=== PATIENT | female | born 1970 | race Caucasian/White ===

== ENCOUNTER 2019-02-05 06:17 | Day surgery (SDC) | payer OTHER ==
[2019-02-05] MEDS ORDERED: Ringers Lactate 1,000 ML IV ONE (06:53)
[2019-02-05] MEDS ORDERED: NA CHLORIDE 0.9% 1,000 ML ONE (07:06)
[2019-02-05] MEDS ORDERED: LIDOCAINE 1% W/EPI 1:100,000 MDV 20 ML VIAL ONE (07:06)
[2019-02-05] MEDS ORDERED: LIDOCAINE 2% MPF 5 ML VIAL ONE (07:12)
[2019-02-05] MEDS ORDERED: MIDAZOLAM HCL 2 MG/2 ML INJ ONE (07:12)
[2019-02-05] MEDS ORDERED: ONDANSETRON 4 MG/2 ML VIAL ONE (07:12)
[2019-02-05] MEDS ORDERED: FENTANYL CITR 100 MCG/2 ML ONE (07:12)
[2019-02-05] MEDS ORDERED: PROPOFOL 200 MG/20 ML VIAL IV ONE (07:12)
[2019-02-05] MEDS ORDERED: EPHEDRINE SULF 50 MG/ML VIAL ONE (08:01)
[2019-02-05] MEDS ORDERED: KETOROLAC 30 MG/ML INJ ONE (08:08)
[2019-02-05] MEDS: MORPHINE 4 MG/ML SYR ONE ×2 (08:32→08:39)
--- NOTE | 2019-02-05 19:11 | OP ---
Date of Procedure: 02/05/2019 Surgeon: Marie Lazo MD Preoperative Diagnoses: Heavy menstrual periods, leiomyomata, possible endometrial polyp or myoma. Postoperative Diagnoses: Abnormal uterine bleeding with fibroids and endometrial polyp. Procedures Performed: 1.Diagnostic hysteroscopy. 2.Operative hysteroscopy with Symphion for polypectomy. 3.Dilation and curettage. Anesthesia: General with LMA. Specimens: Endometrial curettings and polyp. Complications: No complications. Drains: None. Patient's Condition: Stable. Indications For Procedure: Patient is a 48-year-old lady with heavy menstrual bleeding, prolonged pe riods. Transvaginally, her ultrasound was performed. She was found to have fibroids and uterus enla rged at 10.8 cm. The largest fibroid 8.8 cm in the posterior wall, deviated to the left. The endome trial thickness was 3.3 cm with a heterogeneous mass inside the endometrial cavity, so it is either a myoma or a polyp. She was counseled on the possibilities, need for cavity visualization and removal to rule out an atypia or malignancy. After she was consented, she was brought to the hospital. She was taken back to the OR after re-consenting. In the preop area, her mother had the biggest concern as the use of propofol which we reassured that would be done appropriately by the anesthesiologist a nd this is needed in order for us to perform the procedure. The patient consented for this then all the questions were answered. She was taken back to the OR. Description Of Procedure: After placing the patient in supine fashion on the operating table, genera l anesthesia was given. Patient did very well with her propofol. Then, the patient was placed in a dorsal lithotomy position. After pelvic exam was performed, uterus was found to be enlarged about 12 week size with that myoma. Then prep x3 with Betadine was done. The cervix exposed with a speculum . Anterior lip grasped with 2 Allis clamps. Diagnostic SlimLine hysteroscope was introduced into th e uterine cavity through the cervical canal. Endometrial polyp was seen arising from the posterior w all. Endometrial lining appeared to be slightly thickened but mostly unremarkable. Both tubal ostia were well visualized. Then, the diagnostic scope was removed. The operative Symphion scope was the n taken, primed, then the operating element was introduced through this and the mean arterial pressur e was 74 and the set pressure was at 70. Then, we went ahead and performed the hysteroscopy. Once t he polyp was identified, adequate cavity distention was obtained. The polypectomy was performed with the help of the resection device. Then endometrial curettings were also obtained with the same ugo ce. Thorough irrigation was performed. There was good hemostasis. The scope was removed. The samp les were sent for permanent pathology. All instruments were removed. Instrument, needle, and sponge counts were done and were correct at the end of the case. The patient tolerated the procedure well. She will follow up with me in 1 week. We will review the pathology. Then, we will proceed with fu rther surgical planning. Patient also had complaints of a vaginal bulge, but there was no significan t prolapse noted on the pelvic exam. Possibility of hysterectomy versus alternative of just an ablat ion will be reviewed. RASHAD Voice ID: [id number] Report ID: [id number]
== END 2019-02-05 09:34 | disposition home or self-care (01) ==
LOC: OR 06:17
PROVIDERS: ATTEND Obstetrics & Gynecology
PROC: 0UDB7ZX Extraction of Endometrium, Via Natural or Artificial Opening, Diagnostic (ICD-10-PCS; 2019-02-05)
PROC: 0UJD8ZZ Inspection of Uterus and Cervix, Via Natural or Artificial Opening Endoscopic (ICD-10-PCS; 2019-02-05)
PROC: 0UB97ZX Excision of Uterus, Via Natural or Artificial Opening, Diagnostic (ICD-10-PCS; principal; 2019-02-05 07:30)
DX: N92.1 Excessive and frequent menstruation with irregular cycle (principal); D25.9 Leiomyoma of uterus, unspecified; N84.0 Polyp of corpus uteri; E03.9 Hypothyroidism, unspecified; F17.210 Nicotine dependence, cigarettes, uncomplicated; Z88.0 Allergy status to penicillin; Z88.6 Allergy status to analgesic agent; Z80.3 Family history of malignant neoplasm of breast; Z83.3 Family history of diabetes mellitus; Z82.49 Family history of ischemic heart disease and other diseases of the circulatory system
CPT/HCPCS: 81025; 88305; 58558; J2704; J2250; J3010; J7030; J2405

== ENCOUNTER 2019-05-29 06:41 | Day surgery (SDC) | payer OTHER ==
[2019-05-26 14:00] LABS: Absolute Lymphocytes (CBC) 2.1 K/uL (0.7-4.9); Basophils % 0.4 % (0-1.3); Hematocrit 35.9 % (36.0-45.0); Lymphocytes % 25.5 % (15.3-44.8); RBC Red Blood Cell Count 4.12 M/uL (3.86-4.86)
[2019-05-26 14:06] LABS: Urine Appearance CLOUDY; Urine Bilirubin NEGATIVE (NEG); Urine Blood 3+ (NEG); Urine Color YELLOW; Urine Glucose NEGATIVE (NEG); Urine Protein 1+ (NEG); Urine Specific Gravity 1.015 (1.005-1.030); Urine Urobilinogen 0.2 mg/dL (0.2-1.0)
[2019-05-26 14:08] LABS: Urine Microscopic Reflex ORDER UMIC
[2019-05-26 14:17] LABS: Urine Bacteria <20 /HPF (<20); Urine Culture Reflex Order NOT NEEDED; Urine Mucus 1+ /HPF (NONE SEEN); Urine RBC >50 /HPF (NONE SEEN)
--- OUTSIDE RECORDS SUMMARY | 2019-05-29 06:44 | XMS REPORT ---
:1970 Author Organization [employer] Care Team Providers Name Role Phone Cervantes, Na Provider Role Unavailable Allergies, Adverse Reactions, Alerts Substance Reaction Event Type penicillin rash Drug Allergy Problems Problem Type Condition Code Onset Dates Condition Status Problem Postmenopausal Z78.0 Active Problem Cigarette nicotine dependence F17.210 Active without complication Problem Lumbar degenerative disc disease M51.36 Active Problem Seasonal allergies J30.2 Active Assessment Cigarette nicotine dependence F17.210 Active without complication Problem Mixed hyperlipidemia E78.2 Active Assessment Encounter for tobacco use cessation Z71.6 Active counseling Problem Tension-type headache, not G44.209 Active intractable, unspecified chronicity pattern Problem Dermatitis of external ear L30.9 Active Problem Encounter for tobacco use cessation Z71.6 Active counseling Problem Primary insomnia F51.01 Active Problem Ear pain, right H92.01 Active Assessment Primary insomnia F51.01 Active Assessment Postmenopausal Z78.0 Active Assessment Uterine leiomyoma, unspecified D25.9 Active location Assessment Seasonal allergies J30.2 Active Assessment Tension-type headache, not G44.209 Active intractable, unspecified chronicity pattern Assessment Acquired hypothyroidism E03.9 Active Assessment Mixed hyperlipidemia E78.2 Active Assessment Lumbar degenerative disc disease M51.36 Active Problem Acquired hypothyroidism E03.9 Active Medications Medication Code Code Instructions Start End Status Dosage System Date Date Diclofenac ND 80156974204 50 MG Orally May 15May Active 1 tablet with Sodium Twice a day 2018 01, food or milk prn pain 2018 Azithromycin ND 67999271375 250 MG Orally November 13, Active 2 tablets on Once a day 2019 the first day, then 1 tablet daily for 4 days Mirtazapine ND 22131283103 15 MG Orally Active 1 tablet at Once a day bedtime Triamcinolone ND 58221370743 0.1 % Active 1 application Acetonide Externally to affected Twice a day area Levothyroxine ND 26808721342 50 MCG Orally Active 1 tablet on Sodium Once a day an empty [place] the [place] [address]-04 50 MCG Active TAKE 1 TABLET Sodium BY MOUTH ONCE DAILY IN THE MORNING ON AN EMPTY STOMACH Levothroid [facility] 72038921282 50 MCG Orally Active 1 tablet on Once a day an empty stomach in the morning Duloxetine HCl [facility] [address]-48 30 MG Active TAKE 1 CAPSULE BY MOUTH ONCE DAILY FOR 30 DAYS Gabapentin [facility] 68125027170 800 MG Orally Active 2 tablets twice a day Results No Known Results Summary Purpose eClinicalWorks Submission
--- OUTSIDE RECORDS SUMMARY | 2019-05-29 06:44 | XMS REPORT ---
:1970 Author Organization [employer] Care Team Providers Name Role Phone Cervantes, Na Provider Role Unavailable Allergies, Adverse Reactions, Alerts Substance Reaction Event Type penicillin rash Drug Allergy Problems Problem Type Condition Code Onset Dates Condition Status Problem Acquired hypothyroidism E03.9 Active Problem Lumbar degenerative disc disease M51.36 Active Problem Postmenopausal Z78.0 Active Problem Mixed hyperlipidemia E78.2 Active Assessment Cigarette nicotine dependence F17.210 Active without complication Problem Primary insomnia F51.01 Active Assessment Encounter for tobacco use cessation Z71.6 Active counseling Problem Seasonal allergies J30.2 Active Problem Encounter for tobacco use cessation Z71.6 Active counseling Problem Cigarette nicotine dependence F17.210 Active without complication Problem Ear pain, right H92.01 Active Problem Dermatitis of external ear L30.9 Active Assessment Seasonal allergies J30.2 Active Assessment Primary insomnia F51.01 Active Assessment Dermatitis of external ear L30.9 Active Assessment Uterine leiomyoma, unspecified D25.9 Active location Assessment Mixed hyperlipidemia E78.2 Active Assessment Lumbar degenerative disc disease M51.36 Active Assessment Skin lesion of back L98.9 Active Assessment Acquired hypothyroidism E03.9 Active Assessment Postmenopausal Z78.0 Active Medications Medication Code Code Instructions Start End Status Dosage System Date Date Loratadine [facility] 13922914883 10 MG Orally Feb 12Apr Active 1 tablet Once a day 2018 Triamcinolone [facility] 44420680054 0.1 % Active 1 application Acetonide Externally to affected Twice a day area Mirtazapine ND 27345847658 15 MG Orally Feb 12, Active 1 tablet at Once a day 2019 bedtime Levothyroxine [facility] [address]-91 50 MCG Active TAKE 1 TABLET Sodium BY MOUTH ONCE DAILY IN THE MORNING ON AN EMPTY STOMACH Gabapentin ND 12742996567 600 MG Orally Active 2 capsule twice a day Levothroid ND 78462587662 50 MCG Orally Active 1 tablet on Once a day an empty stomach in the morning Duloxetine HCl ND 40719517516 30 MG Orally Inactive 1 capsule Once a day Duloxetine HCl [facility] [address]-94 30 MG Active TAKE 1 CAPSULE BY MOUTH ONCE DAILY FOR 30 DAYS Levothyroxine [facility] 39788940819 50 MCG Orally Active 1 tablet on Sodium Once a day an empty stomach in the morning Azithromycin [facility] 20547493777 250 MG Orally November 13, Active 2 tablets on Once a day 2018 the first day, then 1 tablet daily for 4 days Results No Known Results Summary Purpose eClinicalWorks Submission
[2019-05-29] MEDS ORDERED: SCOPOLAMINE HYDROBROMIDE PATCH TD ONE (06:57)
[2019-05-29] MEDS ORDERED: Ringers Lactate 1,000 ML IV ONE ×2 (06:57→10:01)
[2019-05-29] MEDS ORDERED: dexAMETHasone 10 MG/ML VIAL ONE (07:08)
[2019-05-29] MEDS ORDERED: ROCURONIUM 50 MG/5 ML VIAL IV ONE (07:08)
[2019-05-29] MEDS ORDERED: PROPOFOL 200 MG/20 ML VIAL IV ONE (07:08)
[2019-05-29] MEDS ORDERED: GLYCOPYRROLATE 0.2 MG/ML SYR ONE ×2 (07:08→08:39)
[2019-05-29] MEDS ORDERED: LIDOCAINE 2% MPF 5 ML VIAL ONE (07:08)
[2019-05-29] MEDS ORDERED: ONDANSETRON 4 MG/2 ML VIAL ONE (07:09)
[2019-05-29] MEDS ORDERED: FENTANYL CITR 250 MCG/5 ML ONE ×2 (07:09→08:53)
[2019-05-29] MEDS ORDERED: MIDAZOLAM HCL 2 MG/2 ML INJ ONE (07:09)
[2019-05-29] MEDS: CEFAZOLIN/SWI 2gm 2 GM/20 ML SYR ONE ×2 (07:54→08:00)
[2019-05-29] MEDS: BUPIVACAINE 0.25% PF 30 ML VIAL ONE ×2 (08:16→08:18)
[2019-05-29] MEDS: Ringers Lactate 1,000 ML IV ONE ×2 (09:04→09:15)
[2019-05-29] MEDS: HYDROMORPHONE HCL 1 MG/ML INJ ONE ×4 (12:03→12:38)
[2019-05-29 12:34] VITALS: O2SAT 98
[2019-05-29] MEDS: MIDAZOLAM HCL 2 MG/2 ML INJ ONE ×2 (12:40→13:30)
[2019-05-29 12:59] VITALS: BP 122/75; TEMP 98.7
--- NOTE | 2019-05-30 00:25 | OP ---
Date of Procedure: 05/29/2019 Surgeon: Marie Lazo MD Preoperative Diagnoses: Menorrhagia, pelvic pain, fibroids, remote history of cervical dysplasia for which she had LEEP in 1999. The patient also complained of frequent urination. Postoperative Diagnoses: Menorrhagia, pelvic pain, fibroids, remote history of cervical dysplasia for which she had LEEP in 1999. The patient also complained of frequent urination, and endometriosis. Procedures Performed: 1. Total laparoscopic hysterectomy, bilateral salpingectomy, vaginal morcellation for retrieval of the specimen. 2. Lysis of adhesions from the omentum to the right adnexa and then sigmoid colon to the left tube, left lateral wall at the level of the pelvic brim and proximal lateral wall. 3. Endometriosis removal from pelvic peritoneum. Anesthesia: General endotracheal. Specimens: Uterus, bilateral tubes, and morcellated uterus. Endometriosis present along with the serosal specimen of the uterus at the level of both uterosacral ligaments. Complications: Left ureteric injury. Drains: Winters catheter. Condition: Stable. The patient was recovered from anesthesia, recovered in the PACU, and transferred to [facility] for repair of her ureteric injury. Brief History And Physical: She is a 48-year-old presenting with pelvic pain and bleeding about 12 days and has been feeling pelvic pressure, felt like her uterus was falling out, urinary symptoms as well. Initial visit 6months ago. She had history of overactive bladder and medical treatment for this and this has failed. She had an ultrasound, which showed fibroids, the largest of which was 8 cm. On examination, this was mostly on the left side. She has history of tubal ligation after 2 vaginal deliveries and then the LEEP procedure in 1999 , for severe cervical dysplasia. She had endometrial cavity evaluation and sampling. There was a polyp that was benign and it was removed. Endometrium without atypia or malignancy, secretory endometrium was seen. Hemoglobin level 12 g. Discussed all the options of treatment including DMPA, myomectomy, ablation to be done versus total laparoscopic hysterectomy, bilateral salpingectomy were all reviewed with the patient. As pain was also a leading complaint along with at least 1yr h/o recurrent and frequent bleeding, possible surgical treatment. After the benefits and risks of the procedure including bleeding, infection, injury to the bowel, bladder, and ureters were reviewed she was consented. We consented her for transfusion as well, although the risk is very rare. Risk of leiomyosarcoma was rare and this was reviewed with the patient. A mini lap possibly would be performed if her specimen could not be removed vaginally. Once she was consented for all this, retention of ovaries was discussed with the patient as she is only 48 and her FSH level is still pretty normal. Description Of Procedure: After informed consent was verified, the patient and her mother and sister were addressed in the preop area. All the procedure including the risks and complications of the procedure were all reviewed with the patient and then she was re-consented and taken to the OR. So today, after re-consenting in the preop, she was taken back to the OR placed in the supine fashion on the operating table. General anesthesia was given, she was placed in a dorsal lithotomy position using Socrates stirrups. Arms were tucked by the side. Positioning was checked. SCDs were started. 2 g of Ancef was given. Time-out was done. Pelvic exam revealed the cervix slightly deviated to the right. Uterus appeared to be deviated, the fundus to the right , and a large myoma on the left side. Minimal nodularity palpated in the uterosacral area on both sides. The cul-de-sac was free. After the abdomen was prepped with ChloraPrep and vaginal area with Betadine, draping was done in a sterile fashion. A speculum was placed to expose the cervix. Anterior lip grasped with 2 Allis clamps and a large VCare was introduced into the uterus. Balloon inflated and cup placed and once this was fixed in place after the speculum was removed, then Winters was placed to drain the bladder and attached to a cysto tubing to an LR bag, emptied 300. Then, this area was draped. A 1 cm infraumbilical incision was made with a scalpel. Once the skin incision was made and dissection was done to the level of the fascia, I could see a defect at the level of the umbilicus, which looked like an umbilical hernia. So picked up the edges of the fascia around this umbilical hernia, the ring of the fascial defect was exposed. The preperitoneal fat was removed with the help of a Bovie. Then, the incision was slightly extended in order for me to visualize the edges well and then 0 Vicryl sutures were tagged on both sides. Then, peritoneum was entered bluntly, S retractors placed. Melida introduced. Peritoneal cavity was insufflated. The site of entry was checked with 30- degree lens at 10 mm. Site of entry checked. Upper abdominal surfaces, gallbladder, liver unremarkable. No evidence of any endometriosis or implant. The omentum was unremarkable. The patient was placed in Trendelenburg position. A 5 mm left lower quadrant and right lower quadrant ports were placed after injecting with Marcaine, then suprapubic 10 port placed as well under direct visualization. Then omental adhesions were seen to the left adnexa where the site of the tubal ligation was and this was taken down with the help of the LigaSure with good hemostasis. Then moved on the left side, there was a small ovarian cyst, which appeared to be physiological, no evidence of endometriosis. The tube in the distal part was scarred and was attached to the sigmoid colon. This was taken down sharply with scissors and at the level of the pelvic brim to expose the distal part of the tube as well as insertion of the IP to the ovary. The adhesions were taken down then to visualize the ureter at the level of the pelvic brim. The adhesions were taken down from the colon to the lateral wall. There were endometriotic implants at the area of the left uterosacral insertion, which were more nodular than on the right side, but there were implants on both sides. No other endometriosis was found in the peritoneum of the pelvic cavity. The plan was to remove the endometriosis along with the uterine specimen. The anterior cul-de-sac was free. The left utero-ovarian ligament was taken down, then the mesosalpinx tube were removed, then the peritoneum of the anterior broad ligament was opened up inferior to the round ligament with the help of the LigaSure. Then, once this peritoneal opening was made, then the round ligament was taken down in its entirety and then the lateral wall was opened up. The dissection was performed between the fibroids here that was extending into the lateral wall, the fibroid from all the areolar tissue around dissecting away from the sidewall carefully. Once this was done and the posterior peritoneum was opened up, the posterior broad ligament was taken down to the level of the uterosacral ligament. Here the endometriosis was present and this was dissected by opening a window in the peritoneum itself and going medially to the level of the incision of the uterosacral. However, there was thicker tissue that was attached at the endometriotic implant, which appeared to be infiltrating at the level of the uterine artery. The vein was much more exposed than the artery. So at this point, dissection was carried to the anterior part of the vaginal wall where the bladder flap was raised. Once the peritoneum was incised all the way, the bladder was dissected inferiorly. The periphery of the cup was well visualized and the vesicovaginal space was entered with the help of the monopolar and the anterior midline. Once this was done, the bladder was dissected inferiorly and dissection was performed on the opposite side now taking down the left utero-ovarian ligament, the tube, mesosalpinx, the round ligament. The anterior broad ligament was opened up on the right side and the peritoneum taken down all the way to the level of the bladder flap and the bladder was dissected inferiorly even on the right side, exposing the entire periphery of the cuff and the VCare cup anteriorly. Then posteriorly, once the posterior peritoneum of the broad ligament was taken down to the level of the left uterosacral, here dissection was performed to separate the implants, which were not nodular from the lateral wall. Once this was done, then they were included with the uterine specimen, the vessels were exposed. The vessels were taken down with the help of the bipolar basket tip, then cauterized with the LigaSure and cut. The cardinal ligaments were also taken down and the dissection on the right side was complete. On the left side, dissection was performed to isolate the uterine artery. Once the uterine artery was isolated, medial to the vessels, a window was made so that the vessels could be taken down. Once this was done with the help of the monopolar and LigaSure, the bladder was completely reflected inferiorly to expose the cup. The endometriotic implant that was present at the insertion of the left uterosacral had to be dissected free in order for me to take the uterine vessel, so dissection was performed to separate the uterosacral nodule from the lateral wall. There was a lot of scar tissue here and systematically there was fat as well that was dissected. Once this dissection was complete and the uterine artery was exposed very close to the uterus the vessels were taken down. First with the help of the LigaSure it was cauterized close to the uterus, then 2 clips were placed immediately lateral to the burn and then the vessels were transected. Once the vessels were transected, the inspection was done laterally to visualize the ureter and see its distance, so that further dissection could be performed and at this time I noticed that the ureter on the left side had an injury. The lumen of the ureter was evident and it appeared to be a transection at the time of the dissection of the endometriosis. Once this was recognized, the ureter was followed superiorly to the pelvic brim on the left side and I could see clearly that this was the ureteric injury. At this time, my plan was to complete the hysterectomy while contacting the urologist. Our local urologist did not feel comfortable taking care of this injury, so a call was placed to a trauma urologist at [facility] in [place], Dr. Norris. After talking to Dr. Norris on the phone, as he was out of town, the covering physician Dr. Minor was contacted and advice from him was to finish the procedure and transfer the patient to [facility] for surgery for repair of the ureter. Placing a drain in the pelvic cavity and then placing stay sutures for identification of the proximal and distal ends of the injured ureter was recommended, so with a 5-0 Prolene, I placed 2 sutures, one on the serosa of the proximal and another one on the distal ureter leaving the tails really long for easy identification. This was done after the hysterectomy was completed. The cardinal ligaments were taken down with the help of the LigaSure, then monopolar hook blade was used to perform a circumferential colpotomy. The specimen was detached and pulled out through the vagina. I had to perform going back down vaginally to morcellate the uterus with the help of 10 blade, mass clamps and small Deavers. Once the entire uterus was morcellated enough to be removed, the specimen was retrieved. A vaginal occlusion sponge was placed. Then going back laparoscopically, I changed gloves. The vaginal cuff was closed. There was excellent hemostasis. Closure with 0 PDS both ends and then with simple sutures and then 3 [id number] in the middle approximated the full thickness of the vaginal cuff. Then, the right tube was removed, the distal part. Then, good inspection of the right side showed there was no electrical, mechanical, or thermal injury to the ureter on the right side and the plan was to leave the Winters in place. A TED drain was placed in the pelvic cavity coming out through the suprapubic incision and a nylon stitch was placed to retain this in place. All the ports were removed under direct vision, closed with britany. The fascia was closed with the help of a 0 braided PDS in a [id number] fashion and 4-0 Vicryl interrupted for the skin. Instrument, needle, and sponge counts were correct at the end of the case. EBL was minimal. The patient tolerated the procedure well. Her Winters was left in place and transfer has been arranged to [facility] for the patient to have another surgery. I discussed the findings, the complication, and the plan of care with the mother of the patient and her sister. After she was awake, I discussed this with the patient as well. Contacted Dr. Minor, let him know about all the findings, all the sutures that were placed and her tract has been completed and she has been transferred now. She has a followup with me in 1 week. AVINASH/AMADOR Voice ID: [id number] Report ID: [id number] [place]
== END 2019-05-29 13:40 | disposition short-term general hospital (02) ==
LOC: OR 06:41
PROVIDERS: ATTEND Obstetrics & Gynecology
PROC: 0UT74ZZ Resection of Bilateral Fallopian Tubes, Percutaneous Endoscopic Approach (ICD-10-PCS; 2019-05-29)
PROC: 0DBW4ZZ Excision of Peritoneum, Percutaneous Endoscopic Approach (ICD-10-PCS; 2019-05-29)
PROC: 0UT94ZZ Resection of Uterus, Percutaneous Endoscopic Approach (ICD-10-PCS; principal; 2019-05-29 07:30)
DX: N92.0 Excessive and frequent menstruation with regular cycle (principal); N99.71 Accidental puncture and laceration of a genitourinary system organ or structure during a genitourinary system procedure; Y65.8 Other specified misadventures during surgical and medical care; Y92.234 Operating room of hospital as the place of occurrence of the external cause; D25.2 Subserosal leiomyoma of uterus; N80.0 Endometriosis of uterus; N83.8 Other noninflammatory disorders of ovary, fallopian tube and broad ligament; K66.0 Peritoneal adhesions (postprocedural) (postinfection); N32.81 Overactive bladder; A63.0 Anogenital (venereal) warts; E03.9 Hypothyroidism, unspecified; Z87.410 Personal history of cervical dysplasia; Z88.0 Allergy status to penicillin
CPT/HCPCS: 58573; 58662; 85025; 36415; 86900; 86850; 81025; 86901; 88302; 88307; J2704; J2250 ×2; J3010 ×2; J1100; J1170 ×2; J0690; J7120 ×3; J2405; 81003; 81015

== ENCOUNTER 2019-06-24 17:21 | Emergency (ER) | payer OTHER ==
--- OUTSIDE RECORDS SUMMARY | 2019-06-24 17:24 | XMS REPORT ---
[...] Status Dosage System Date Date Diclofenac ND 70175520571 50 MG Orally May 15May Active 1 tablet with Sodium Twice a day 2018 01, food or milk prn pain 2018 Azithromycin ND 12427386225 250 MG Orally November 13, Active 2 tablets on Once a day 2019 the first day, then 1 tablet daily for 4 days Mirtazapine ND 07603517211 15 MG Orally Active 1 tablet at Once a day bedtime Triamcinolone ND 96115276327 0.1 % Active 1 application Acetonide Externally to affected Twice a day area Levothyroxine ND 38875929807 50 MCG Orally Active 1 tablet on Sodium Once a day an empty [place] the [place] [address]-36 50 MCG Active TAKE 1 TABLET Sodium BY MOUTH ONCE DAILY IN THE MORNING ON AN EMPTY STOMACH Levothroid [facility] 82352087067 50 MCG Orally Active 1 tablet on Once a day an empty stomach in the morning Duloxetine HCl [facility] [address]-92 30 MG Active TAKE 1 CAPSULE BY MOUTH ONCE DAILY FOR 30 DAYS Gabapentin [facility] 37820465442 800 MG Orally Active 2 tablets twice a day Results No Known Results Summary Purpose eClinicalWorks Submission
--- OUTSIDE RECORDS SUMMARY | 2019-06-24 17:24 | XMS REPORT ---
[...] Status Dosage System Date Date Loratadine [facility] 36212270215 10 MG Orally Feb 12Apr Active 1 tablet Once a day 2018 Triamcinolone [facility] 07058274478 0.1 % Active 1 application Acetonide Externally to affected Twice a day area Mirtazapine ND 26407484400 15 MG Orally Feb 12, Active 1 tablet at Once a day 2019 bedtime Levothyroxine [facility] [address]-70 50 MCG Active TAKE 1 TABLET Sodium BY MOUTH ONCE DAILY IN THE MORNING ON AN EMPTY STOMACH Gabapentin ND 93982588299 600 MG Orally Active 2 capsule twice a day Levothroid ND 20840017982 50 MCG Orally Active 1 tablet on Once a day an empty stomach in the morning Duloxetine HCl ND 20311646512 30 MG Orally Inactive 1 capsule Once a day Duloxetine HCl [facility] [address]-07 30 MG Active TAKE 1 CAPSULE BY MOUTH ONCE DAILY FOR 30 DAYS Levothyroxine [facility] 95984042560 50 MCG Orally Active 1 tablet on Sodium Once a day an empty stomach in the morning Azithromycin [facility] 01975614839 250 MG Orally November 13, Active 2 tablets on Once a day 2018 the first day, then 1 tablet daily for 4 days Results No Known Results Summary Purpose eClinicalWorks Submission
--- OUTSIDE RECORDS SUMMARY | 2019-06-24 17:24 | XMS REPORT ---
:1970 [facility] Address [address] [place] [address] Dr. Sahu [address] [place] [id number] Care Team Providers Name Role Phone MILTON MINOR Unavailable Unavailable Problems This patient has no known problems. Allergies, Adverse Reactions, Alerts This patient has no known allergies or adverse reactions. Medications This patient has no known medications. Results Test Description Test Time Test Comments Text Results Atomic Results Result Comments TISSUE EXAM 2019-06-03 15:55:00 Surgical Pathology Report Case: [id number] Authorizing Provider: Milton Minor MD Collected: 05/29/20198 Ordering Location: [facility] Received: 05/30/2019 0928 SERVICES Pathologist: Wilman Lerma MD Specimen: Ureter, Left, distal left ureter URETER, LEFT DISTAL, RESECTION: - NO PATHOLOGIC DIAGNOSIS Signing Pathologist Direct Phone Line: [phone] signed by Kavon Philip MD for Wilman Lerma MD on 06/03/2019 at 3:55 PMThe urothelial layer is almost completely denuded. [id number] obstruction Ureter Part A received in formalin labeled with the patient's name, accession number and "left distal ureter" is a 1.1 cm long and 0.3 cm in diameter hamilton-white to pink partial ureter. The specimen is unoriented. The specimen is serially sectioned and entirely submitted in cassette A1. NW/ew Performed. C. DIFFICILE GDH TOXIN 2019-06-02 10:43:00 Test Item Value Reference Range Comments CDT TOXIN (test zbkj=[id number]) Negative Negative CDT GDH ANTIGEN (test Negative Negative No indication of Clostridium lkko=[id number]) difficile infection and no colonization. Discontinue enteric isolation and therapy. Testing performed by [employer] Rapid Cassette Assay. For GDH, published sensitivity of the assay is 98.7% compared to cytotoxicity testing. For Toxin AB, published sensitivity is 87.8% and specificity 99.4% compared to cytotoxicity testing.Verification of kit performance was done by the [facility] prior to clinical use.CBC W/PLT COUNT & AUTO [id number] 06:11:00 Test Item Value Reference Range Comments WHITE BLOOD CELL COUNT (BEAKER) (test kgth=173) 6.1 K/ L 3.5-10.5 RED BLOOD CELL COUNT (BEAKER) (test uoos=800) 3.11 M/ L 3.93-5.22 HEMOGLOBIN (BEAKER) (test cezi=069) 8.8 GM/DL 11.2-15.7 HEMATOCRIT (BEAKER) (test qlmh=058) 28.1 % 34.1-44.9 MEAN CORPUSCULAR VOLUME (BEAKER) (test hcuo=182) 90.4 fL 79.4-94.8 MEAN CORPUSCULAR HEMOGLOBIN (BEAKER) (test 28.3 pg 25.6-32.2 zqxd=994) MEAN CORPUSCULAR HEMOGLOBIN CONC (BEAKER) (test 31.3 GM/DL 32.2-35.5 xguy=434) RED CELL DISTRIBUTION WIDTH (BEAKER) (test 15.9 % 11.7-14.4 nfnb=146) PLATELET COUNT (BEAKER) (test bafj=827) 241 K/CU MM 150-450 MEAN PLATELET VOLUME (BEAKER) (test ecty=746) 10.2 fL 9.4-12.3 NUCLEATED RED BLOOD CELLS (BEAKER) (test 0 /100 WBC 0-0 gmsa=514) NEUTROPHILS RELATIVE PERCENT (BEAKER) (test 51 % vqcr=140) LYMPHOCYTES RELATIVE PERCENT (BEAKER) (test 40 % fogj=184) MONOCYTES RELATIVE PERCENT (BEAKER) (test 6 % szrj=569) EOSINOPHILS RELATIVE PERCENT (BEAKER) (test 3 % okpi=330) BASOPHILS RELATIVE PERCENT (BEAKER) (test 0 % oown=370) NEUTROPHILS ABSOLUTE COUNT (BEAKER) (test 3.06 K/ L 1.56-6.13 plur=089) LYMPHOCYTES ABSOLUTE COUNT (BEAKER) (test 2.42 K/ L 1.18-3.74 rtfm=361) MONOCYTES ABSOLUTE COUNT (BEAKER) (test 0.34 K/ L 0.24-0.36 kmtu=014) EOSINOPHILS ABSOLUTE COUNT (BEAKER) (test 0.20 K/ L 0.04-0.36 lcta=247) BASOPHILS ABSOLUTE COUNT (BEAKER) (test 0.02 K/ L 0.01-0.08 ukgx=014) IMMATURE GRANULOCYTES-RELATIVE PERCENT (BEAKER) 0 % 0-1 (test jtwx=3559) BASIC METABOLIC [id number] 06:23:00 Test Item Value Reference Range Comments SODIUM (BEAKER) (test 140 meq/L 136-145 yqmf=386) POTASSIUM (BEAKER) (test 3.7 meq/L 3.5-5.1 vxwe=787) CHLORIDE (BEAKER) (test 109 meq/L 98-107 rxrs=992) CO2 (BEAKER) (test 24 meq/L 22-29 dhuv=826) BLOOD UREA NITROGEN 4 mg/dL 7-21 (BEAKER) (test fyoo=169) CREATININE (BEAKER) (test 0.81 mg/dL 0.57-1.25 uzvc=142) GLUCOSE RANDOM (BEAKER) 83 mg/dL 70-105 (test emwr=953) CALCIUM (BEAKER) (test 7.9 mg/dL 8.4-10.2 llpl=885) EGFR (BEAKER) (test 76 mL/min/1.73 sq m ESTIMATED GFR IS NOT clpc=6456) ACCURATE CREATININE CLEARANCE IN PREDICTING GLOMERULAR FILTRATION RATE. ESTIMATED GFR IS NOT APPLICABLE FOR DIALYSIS PATIENTS. CBC W/PLT COUNT & AUTO [id number] 05:39:00 Test Item Value Reference Range Comments WHITE BLOOD CELL COUNT (BEAKER) (test ectt=246) 6.3 K/ L 3.5-10.5 RED BLOOD CELL COUNT (BEAKER) (test dfzz=508) 3.00 M/ L 3.93-5.22 HEMOGLOBIN (BEAKER) (test dcob=687) 8.5 GM/DL 11.2-15.7 HEMATOCRIT (BEAKER) (test xpad=896) 27.3 % 34.1-44.9 MEAN CORPUSCULAR VOLUME (BEAKER) (test gxxk=318) 91.0 fL 79.4-94.8 MEAN CORPUSCULAR HEMOGLOBIN (BEAKER) (test 28.3 pg 25.6-32.2 gdfk=001) MEAN CORPUSCULAR HEMOGLOBIN CONC (BEAKER) (test 31.1 GM/DL 32.2-35.5 zjfk=482) RED CELL DISTRIBUTION WIDTH (BEAKER) (test 15.9 % 11.7-14.4 vwcl=273) PLATELET COUNT (BEAKER) (test eprp=469) 243 K/CU MM 150-450 MEAN PLATELET VOLUME (BEAKER) (test zevz=017) 10.2 fL 9.4-12.3 NUCLEATED RED BLOOD CELLS (BEAKER) (test 0 /100 WBC 0-0 nade=685) NEUTROPHILS RELATIVE PERCENT (BEAKER) (test 50 % bkqv=684) LYMPHOCYTES RELATIVE PERCENT (BEAKER) (test 40 % ynjv=397) MONOCYTES RELATIVE PERCENT (BEAKER) (test 6 % pxjd=600) EOSINOPHILS RELATIVE PERCENT (BEAKER) (test 3 % pegm=181) BASOPHILS RELATIVE PERCENT (BEAKER) (test 0 % vyvk=146) NEUTROPHILS ABSOLUTE COUNT (BEAKER) (test 3.13 K/ L 1.56-6.13 dswh=690) LYMPHOCYTES ABSOLUTE COUNT (BEAKER) (test 2.54 K/ L 1.18-3.74 nqvx=831) MONOCYTES ABSOLUTE COUNT (BEAKER) (test 0.39 K/ L 0.24-0.36 jwxr=058) EOSINOPHILS ABSOLUTE COUNT (BEAKER) (test 0.20 K/ L 0.04-0.36 ibps=011) BASOPHILS ABSOLUTE COUNT (BEAKER) (test 0.01 K/ L 0.01-0.08 esza=124) IMMATURE GRANULOCYTES-RELATIVE PERCENT (BEAKER) 0 % 0-1 (test jkfj=4734) BASIC METABOLIC [id number] 06:24:00 Test Item Value Reference Range Comments SODIUM (BEAKER) (test 140 meq/L 136-145 putw=900) POTASSIUM (BEAKER) (test 3.5 meq/L 3.5-5.1 ggxc=589) CHLORIDE (BEAKER) (test 111 meq/L 98-107 idno=187) CO2 (BEAKER) (test 22 meq/L 22-29 anek=179) BLOOD UREA NITROGEN 6 mg/dL 7-21 (BEAKER) (test twfd=197) CREATININE (BEAKER) (test 0.85 mg/dL 0.57-1.25 zutd=857) GLUCOSE RANDOM (BEAKER) 92 mg/dL 70-105 (test pymm=339) CALCIUM (BEAKER) (test 7.7 mg/dL 8.4-10.2 bpsl=057) EGFR (BEAKER) (test 72 mL/min/1.73 sq m ESTIMATED GFR IS NOT ocwy=5451) ACCURATE CREATININE CLEARANCE IN PREDICTING GLOMERULAR FILTRATION RATE. ESTIMATED GFR IS NOT APPLICABLE FOR DIALYSIS PATIENTS. HEMOGLOBIN AND [id number] 03:40:00 Test Item Value Reference Range Comments HEMOGLOBIN (BEAKER) (test qvhj=981) 9.5 GM/DL 11.2-15.7 HEMATOCRIT (BEAKER) (test xpoq=395) 31.5 % 34.1-44.9 BASIC METABOLIC [id number] 08:01:00 Test Item Value Reference Range Comments SODIUM (BEAKER) (test 138 meq/L 136-145 fuld=541) POTASSIUM (BEAKER) (test 4.2 meq/L 3.5-5.1 saog=081) CHLORIDE (BEAKER) (test 110 meq/L 98-107 nchv=677) CO2 (BEAKER) (test 18 meq/L 22-29 pkjd=570) BLOOD UREA NITROGEN 10 mg/dL 7-21 (BEAKER) (test stem=005) CREATININE (BEAKER) (test 1.07 mg/dL 0.57-1.25 rede=307) GLUCOSE RANDOM (BEAKER) 120 mg/dL 70-105 (test akef=186) CALCIUM (BEAKER) (test 7.6 mg/dL 8.4-10.2 oaku=320) EGFR (BEAKER) (test 55 mL/min/1.73 sq m ESTIMATED GFR IS NOT ifnl=4401) ACCURATE CREATININE CLEARANCE IN PREDICTING GLOMERULAR FILTRATION RATE. ESTIMATED GFR IS NOT APPLICABLE FOR DIALYSIS PATIENTS. HEMOGLOBIN AND [id number] 07:38:00 Test Item Value Reference Range Comments HEMOGLOBIN (BEAKER) (test cjvr=026) 10.7 GM/DL 11.2-15.7 HEMATOCRIT (BEAKER) (test qgob=277) 35.0 % 34.1-44.9 RAD, ABDOMEN/KUB, 1 VIEW [id number] 01:18:00Reason for exam:->post-op evaluation of ureteral stentFINAL REPORT TECHNIQUE: Single View of the Abdomen. INDICATION: Postop evaluation of ureteral stent. COMPARISON: None. FINDINGS/IMPRESSION: The implanted ureteral stent extends from the region of the left kidney through the expected course of the left ureter to the bladder. Additional tubing overlies the right abdomen and pelvis. There is bilateral subcutaneous air compatible with postop changes. Bowel gas pattern is nonspecific but nonobstructive. No acute osseous abnormality of the included skeleton. Signed: Caroline Santa MDReport Verified Date/Time: 2018 01:18:26 01: 18 AMBASIC METABOLIC [id number] 00:34:00 Test Item Value Reference Range Comments SODIUM (BEAKER) (test 140 meq/L 136-145 ecmz=069) POTASSIUM (BEAKER) (test 5.2 meq/L 3.5-5.1 Specimen slightly tgmd=760) hemolyzed CHLORIDE (BEAKER) (test 113 meq/L 98-107 nrug=610) CO2 (BEAKER) (test 17 meq/L 22-29 jdhw=509) BLOOD UREA NITROGEN 7 mg/dL 7-21 (BEAKER) (test xoxu=989) CREATININE (BEAKER) (test 1.07 mg/dL 0.57-1.25 Specimen slightly dozd=874) hemolyzed GLUCOSE RANDOM (BEAKER) 151 mg/dL 70-105 (test kdlt=496) CALCIUM (BEAKER) (test 7.2 mg/dL 8.4-10.2 udib=871) EGFR (BEAKER) (test 55 mL/min/1.73 sq m ESTIMATED GFR IS NOT mppx=5743) ACCURATE CREATININE CLEARANCE IN PREDICTING GLOMERULAR FILTRATION RATE. ESTIMATED GFR IS NOT APPLICABLE FOR DIALYSIS PATIENTS. 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 No interpretation was requested. Please refer to the operative report regarding findings. Please refer to PACS for patient radiation dose information. Signed: Eric Bundy MDReport Verified Date/Time: 05/29/2019 19:58:40 Reading Location: [facility] C013W Consult Reading Room [facility] METABOLIC [id number] 16:59:00 Test Item Value Reference Range Comments SODIUM (BEAKER) (test 138 meq/L 136-145 ltat=801) POTASSIUM (BEAKER) (test 4.0 meq/L 3.5-5.1 vnrx=026) CHLORIDE (BEAKER) (test 108 meq/L 98-107 tkhc=876) CO2 (BEAKER) (test 24 meq/L 22-29 zkwb=507) BLOOD UREA NITROGEN 8 mg/dL 7-21 (BEAKER) (test ceyx=072) CREATININE (BEAKER) (test 0.96 mg/dL 0.57-1.25 kgpo=307) GLUCOSE RANDOM (BEAKER) 132 mg/dL 70-105 (test eium=221) CALCIUM (BEAKER) (test 8.6 mg/dL 8.4-10.2 crjf=552) EGFR (BEAKER) (test 63 mL/min/1.73 sq m ESTIMATED GFR IS NOT dfqf=9573) ACCURATE CREATININE CLEARANCE IN PREDICTING GLOMERULAR FILTRATION RATE. ESTIMATED GFR IS NOT APPLICABLE FOR DIALYSIS PATIENTS. CBC W/PLT COUNT & AUTO [id number] 16:40:00 Test Item Value Reference Range Comments WHITE BLOOD CELL COUNT (BEAKER) (test gltk=623) 13.7 K/ L 3.5-10.5 RED BLOOD CELL COUNT (BEAKER) (test rogq=349) 4.31 M/ L 3.93-5.22 HEMOGLOBIN (BEAKER) (test lwzl=661) 11.9 GM/DL 11.2-15.7 HEMATOCRIT (BEAKER) (test dusd=120) 38.1 % 34.1-44.9 MEAN CORPUSCULAR VOLUME (BEAKER) (test doto=648) 88.4 fL 79.4-94.8 MEAN CORPUSCULAR HEMOGLOBIN (BEAKER) (test 27.6 pg 25.6-32.2 lbby=046) MEAN CORPUSCULAR HEMOGLOBIN CONC (BEAKER) (test 31.2 GM/DL 32.2-35.5 uzrv=805) RED CELL DISTRIBUTION WIDTH (BEAKER) (test 15.2 % 11.7-14.4 rkxg=278) PLATELET COUNT (BEAKER) (test qkkw=112) 299 K/CU MM 150-450 MEAN PLATELET VOLUME (BEAKER) (test vcbh=717) 10.2 fL 9.4-12.3 NUCLEATED RED BLOOD CELLS (BEAKER) (test 0 /100 WBC 0-0 ofcb=528) NEUTROPHILS RELATIVE PERCENT (BEAKER) (test 90 % hmmf=366) LYMPHOCYTES RELATIVE PERCENT (BEAKER) (test 8 % krhi=371) MONOCYTES RELATIVE PERCENT (BEAKER) (test 1 % rudr=277) EOSINOPHILS RELATIVE PERCENT (BEAKER) (test 0 % dqql=103) BASOPHILS RELATIVE PERCENT (BEAKER) (test 0 % bgra=218) NEUTROPHILS ABSOLUTE COUNT (BEAKER) (test 12.35 K/ L 1.56-6.13 bxgo=960) LYMPHOCYTES ABSOLUTE COUNT (BEAKER) (test 1.10 K/ L 1.18-3.74 vdrz=253) MONOCYTES ABSOLUTE COUNT (BEAKER) (test 0.17 K/ L 0.24-0.36 jhla=704) EOSINOPHILS ABSOLUTE COUNT (BEAKER) (test 0.01 K/ L 0.04-0.36 nmcy=672) BASOPHILS ABSOLUTE COUNT (BEAKER) (test 0.02 K/ L 0.01-0.08 kxda=703) IMMATURE GRANULOCYTES-RELATIVE PERCENT (BEAKER) 0 % 0-1 (test qmju=3554)
[2019-06-24 19:08] LABS: Urine Blood 3+ (NEG); Urine Glucose NEGATIVE (NEG); Urine Protein 3+ (NEG); Urine Specific Gravity >1.030 (1.005-1.030)
[2019-06-24] MEDS ORDERED: NA CHLORIDE 0.9% 1,000 ML ONE (19:51)
[2019-06-24] MEDS ORDERED: CEFTRIAXONE/SWI 1gm 1 GM/10 ML SYR ONE (19:51)
[2019-06-24 20:07] LABS: Basophils % 1.1 % (0-1.3); Hematocrit 37.8 % (36.0-45.0); Lymphocytes % 34.9 % (15.3-44.8); MPV 8.6 fL (7.6-11.3); RBC Red Blood Cell Count 4.34 M/uL (3.86-4.86)
[2019-06-24 20:23] LABS: Albumin 3.7 g/dL (3.4-5.0); Bilirubin Total 0.2 mg/dL (0.2-1.0); Potassium 3.8 mmol/L (3.5-5.1); Protein, Total 7.5 g/dL (6.4-8.2)
[2019-06-24] MEDS ORDERED: CIPROFLOXACIN HCL 500 MG TAB ONE (20:43)
--- NOTE | 2019-06-24 21:03 | RAD REPORT ---
EXAM DESCRIPTION: RAD - Abdomen 1 View (KUB) - 06/24/2019 7:46 pm CLINICAL HISTORY: ABD PAIN History of recent hysterectomy with ureteral injury and postoperative left ureteral stent placement COMPARISON: <Comparisons> None FINDINGS: Bowel gas pattern is non-specific. No obstruction, free air or pneumatosis. No suspicious calcifications. Numerous phleboliths are present in the pelvis. Left ureteral stent is in place. No calcifications along the course of the stent. No renal calculi identifiable. No significant bony findings IMPRESSION: No acute bowel finding. Left ureteral stent is in place in the left collecting system. No stone along the course of the stent .
--- NOTE | 2019-06-24 21:13 | ER ---
Nurse's Notes [facility] Name: More Chris Age: 48 yrs Sex: Female : 1970 Arrival Date: 06/24/2019 Time: 17:22 Bed 18 Private MD: Diagnosis: Dysuria;Urinary tract infection, site not specified Presentation: 06/24 17:25 Presenting complaint: Patient states: "I had a hysterectomy by Violet Bellamy, on May 29, I had to be transported to [facility] in [place] because my ureter got cut. I had a stent put in at [facility]. I had a catheter for 2 weeks and they removed the catheter on the . I have been having urination problems for the past 3 days. Sometime it hugo, I always have the urge to pee, I contact my doctor and he wanted me to come up there but by the time I could drive there his office would be closed so he told me to come to the ER. Transition of care: patient was not received from another setting of care. Onset of symptoms was 2018. Risk Assessment: Do you want to hurt yourself or someone else? Patient reports no desire to harm self or others. Initial Sepsis Screen: Does the patient meet any 2 criteria? No. Patient's initial sepsis screen is negative. Does the patient have a suspected source of infection? Yes: Dysuria/Frequency/Urgency/UTI. Care prior to arrival: None. 17:25 Method Of Arrival: Ambulatory aj1 17:25 Acuity: ROXIE 3 aj1 Triage Assessment: 17:30 General: Appears in no apparent distress. uncomfortable, Behavior is calm, cooperative, aj1 appropriate for age. Pain: Pain currently is 4 out of 10 on a pain scale. Neuro: Level of Consciousness is awake, alert, obeys commands. Cardiovascular: Patient's skin is warm and dry. Respiratory: Airway is patent Respiratory effort is even, unlabored, Respiratory pattern is regular, symmetrical. 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 - Social history:: Smoking status: Patient uses tobacco products, smokes one-half pack cigarettes per day. - Ebola Screening: : Patient denies travel to an Ebola-affected area in the 21 days before illness onset. - Family history:: not pertinent. Screenin:10 Abuse screen: Denies threats or abuse. Denies injuries from another. Nutritional ca1 screening: No deficits noted. Tuberculosis screening: No symptoms or risk factors identified. Fall Risk IV access (20 points). Assessment: 19:10 General: Appears in no apparent distress. comfortable, Behavior is calm, cooperative, ca1 appropriate for age. Pain: Complains of pain in suprapubic area Pain currently is 4 out of 10 on a pain scale. Quality of pain is described as crampy, Pain began 2-3 days ago. Is continuous. Neuro: Level of Consciousness is awake, alert, obeys commands, Oriented to person, place, time, situation, Appropriate for age. Cardiovascular: Heart tones S1 S2 present Capillary refill < 3 seconds Patient's skin is warm and dry. Respiratory: Airway is patent Respiratory effort is even, unlabored, Respiratory pattern is regular, symmetrical, Breath sounds are clear bilaterally. GI: Abdomen is flat, non-distended, Bowel sounds present X 4 quads. Abd is soft X 4 quads Abdomen is tender to palpation in suprapubic area. : Reports urgency, urinary frequency, "feeling of urinary retention after voiding". EENT: No deficits noted. No signs and/or symptoms were reported regarding the EENT system. Derm: Skin is intact, is healthy with good turgor, Skin is pink, warm \\T\\ dry. Musculoskeletal: Circulation, motion, and sensation intact. Capillary refill < 3 seconds, Range of motion: intact in all extremities. 20:13 Reassessment: Patient appears in no apparent distress at this time. Patient and/or ca1 family updated on plan of care and expected duration. Pain level reassessed. Patient is alert, oriented x 3, equal unlabored respirations, skin warm/dry/pink. 21:15 Reassessment: Patient appears in no apparent distress at this time. Patient is alert, ca1 oriented x 3, equal unlabored respirations, skin warm/dry/pink. Vital Signs: 17:30 BP 107 / 63; Pulse 93; Resp 18; Temp 97.4; Pulse Ox 100% on R/A; Weight 69.85 kg (R); aj1 Height 5 ft. 3 in. (160.02 cm) (R); 19:10 BP 94 / 59; Pulse 63; Resp 17 S; Pulse Ox 99% on R/A; ca1 20:13 BP 112 / 68; Pulse 76; Resp 17 S; Pulse Ox 100% on R/A; ca1 21:15 BP 99 / 57; Pulse 85; Resp 17 S; Pulse Ox 100% on R/A; ca1 17:30 Body Mass Index 27.28 (69.85 kg, 160.02 cm) aj1 ED Course: 17:22 Patient arrived in ED. as 17:28 Triage completed. aj1 17:30 Arm band placed on Patient placed in waiting room, Patient notified of wait time. aj1 18:15 Bandar Carey MD is Attending Physician. wilman 19:10 Patient has correct armband on for positive identification. Placed in gown. Bed in low ca1 position. Call light in reach. Side rails up X 1. Pulse ox on. NIBP on. Warm blanket given. 19:47 Abdomen 1 View (KUB) XRAY In Process Unspecified. EDMS 19:47 Asuncion Sanches, RN is Primary Nurse. ca1 19:57 Initial lab(s) drawn, by me, sent to lab. Inserted saline lock: 22 gauge in right lt1 antecubital area, using aseptic technique. 19:57 Urine Culture Sent. lt1 19:59 IV discontinued, intact, bleeding controlled, No redness/swelling at site. Pressure ca1 dressing applied, Previous IV inserted G22 on RAC. Does not flush. 20:00 No provider procedures requiring assistance completed. Inserted saline lock: 20 gauge ca1 in left antecubital area, using aseptic technique. 21:03 US Rp Exam Limited In Process Unspecified. EDMS 21:09 Carine Jones FNP-C is PHCP. snw 21:32 IV discontinued, intact, bleeding controlled, No redness/swelling at site. Pressure ca1 dressing applied. Administered Medications: 20:02 Drug: NS 0.9% 500 ml Route: IV; Rate: bolus; Site: left antecubital; ca1 21:30 Follow up: Response: No adverse reaction; IV Status: Completed infusion ca1 20:03 Drug: Rocephin 1 grams Route: IV; Rate: per protocol; Site: left antecubital; ca1 20:43 Follow up: Response: No adverse reaction; IV Status: Completed infusion ca1 20:43 Drug: Cipro 500 mg Route: PO; ca1 21:33 Follow up: Response: No adverse reaction ca1 Outcome: 21:11 Discharge ordered by . lyudmila 21:32 Discharged to home ambulatory, with significant other. ca1 21:32 Condition: stable 21:32 Discharge instructions given to patient, Instructed on discharge instructions, follow up and referral plans. medication usage, Demonstrated understanding of instructions, follow-up care, medications, Prescriptions given X 4. 21:33 Patient left the ED. ca1 Addendum: 06/29/2019 08:37 Addendum: Culture Results: Positive urine culture. No further action required. Bacteria s s sensitive to prescribed antibiotic. Signatures: Dispatcher [employer] EDCarley Hodge RN RN aj1 Bandar Carey MD MD cha Therrien, Shelly, BI DATA MODELER-C BI DATA MODELER-Kaylanw Tia Lepe Shelby, RN RN Asuncion Sanches RN RN ca1 Zandra Garcia 1
--- NOTE | 2019-06-24 21:13 | EDPHYS ---
Physician Documentation [facility] Name: More Chris Age: 48 yrs Sex: Female : 1970 Arrival Date: 06/24/2019 Time: 17:22 Bed 18 Private MD: ED Physician Bandar Caery HPI: 06/24 18:53 This 48 yrs old Female presents to ER via Ambulatory with complaints of wilman Urinary Retention. 18:53 The patient presents with urinary symptoms, dysuria, frequency, hesitancy, urinary wilman retention. Onset: The symptoms/episode began/occurred 3 day(s) ago. Modifying factors: The symptoms are alleviated by nothing, the symptoms are aggravated by movement, urinating. Associated signs and symptoms: Pertinent positives: dysuria. The patient is not sexually active. 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 - Social history:: Smoking status: Patient uses tobacco products, smokes one-half pack cigarettes per day. - Ebola Screening: : Patient denies travel to an Ebola-affected area in the 21 days before illness onset. - Family history:: not pertinent. ROS: 18:53 Constitutional: Negative for fever, chills, and weight loss, Eyes: Negative for injury, wilman pain, redness, and discharge, ENT: Negative for injury, pain, and discharge, Neck: Negative for injury, pain, and swelling, Cardiovascular: Negative for chest pain, palpitations, and edema, Respiratory: Negative for shortness of breath, cough, wheezing, and pleuritic chest pain, Back: Negative for injury and pain, : Negative for injury, bleeding, discharge, and swelling, MS/Extremity: Negative for injury and deformity, Skin: Negative for injury, rash, and discoloration, Neuro: Negative for headache, weakness, numbness, tingling, and seizure, Psych: Negative for depression, anxiety, suicide ideation, homicidal ideation, and hallucinations, Allergy/Immunology: Negative for hives, rash, and allergies, Endocrine: Negative for neck swelling, polydipsia, polyuria, polyphagia, and marked weight changes, Hematologic/Lymphatic: Negative for swollen nodes, abnormal bleeding, and unusual bruising. 18:53 Abdomen/GI: Positive for abdominal pain, of the suprapubic area. Exam: 18:53 Constitutional: This is a well developed, well nourished patient who is awake, alert, wilman and in no acute distress. Head/Face: Normocephalic, atraumatic. Eyes: Pupils equal round and reactive to light, extra-ocular motions intact. Lids and lashes normal. Conjunctiva and sclera are non-icteric and not injected. Cornea within normal limits. Periorbital areas with no swelling, redness, or edema. ENT: Nares patent. No nasal discharge, no septal abnormalities noted. Tympanic membranes are normal and external auditory canals are clear. Oropharynx with no redness, swelling, or masses, exudates, or evidence of obstruction, uvula midline. Mucous membranes moist. Neck: Trachea midline, no thyromegaly or masses palpated, and no cervical lymphadenopathy. Supple, full range of motion without nuchal rigidity, or vertebral point tenderness. No Meningismus. Chest/axilla: Normal chest wall appearance and motion. Nontender with no deformity. No lesions are appreciated. Cardiovascular: Regular rate and rhythm with a normal S1 and S2. No gallops, murmurs, or rubs. Normal PMI, no JVD. No pulse deficits. Respiratory: Lungs have equal breath sounds bilaterally, clear to auscultation and percussion. No rales, rhonchi or wheezes noted. No increased work of breathing, no retractions or nasal flaring. Back: No spinal tenderness. No costovertebral tenderness. Full range of motion. Skin: Warm, dry with normal turgor. Normal color with no rashes, no lesions, and no evidence of cellulitis. MS/ Extremity: Pulses equal, no cyanosis. Neurovascular intact. Full, normal range of motion. Neuro: Awake and alert, GCS 15, oriented to person, place, time, and situation. Cranial nerves II-XII grossly intact. Motor strength 5/5 in all extremities. Sensory grossly intact. Cerebellar exam normal. Normal gait. Psych: Awake, alert, with orientation to person, place and time. Behavior, mood, and affect are within normal limits. 18:53 Abdomen/GI: Inspection: abdomen appears normal, Bowel sounds: normal, Palpation: mild abdominal tenderness, in the suprapubic area, Liver: no appreciated palpable abnormalities, Hernia: not appreciated. Vital Signs: 17:30 BP 107 / 63; Pulse 93; Resp 18; Temp 97.4; Pulse Ox 100% on R/A; Weight 69.85 kg (R); aj1 Height 5 ft. 3 in. (160.02 cm) (R); 19:10 BP 94 / 59; Pulse 63; Resp 17 S; Pulse Ox 99% on R/A; ca1 20:13 BP 112 / 68; Pulse 76; Resp 17 S; Pulse Ox 100% on R/A; ca1 21:15 BP 99 / 57; Pulse 85; Resp 17 S; Pulse Ox 100% on R/A; ca1 17:30 Body Mass Index 27.28 (69.85 kg, 160.02 cm) aj1 MDM: 18:15 Patient medically screened. [facility] 18:55 Data reviewed: vital signs, nurses notes, lab test result(s), radiologic studies. [facility] 06/24 18:52 Order name: CBC with Diff; Complete Time: 21:09 [facility] 06/24 18:52 Order name: Comprehensive Metabolic Panel; Complete Time: 20:26 [facility] 06/24 18:52 Order name: Urine Culture [facility] 06/24 18:52 Order name: Abdomen 1 View (KUB) XRAY; Complete Time: 21:09 [facility] 06/24 18:55 Order name: US Rp Exam [facility] 06/24 18:59 Order name: Urine Dipstick--Ancillary (enter results); Complete Time: 19:44 06/24 18:52 Order name: Urine Dipstick-Ancillary (obtain specimen); Complete Time: 19:04 [facility] 06/24 18:52 Order name: Bladder Scanner: pvr please; Complete Time: 19:04 [facility] Administered Medications: 20:02 Drug: NS 0.9% 500 ml Route: IV; Rate: bolus; Site: left antecubital; ca1 21:30 Follow up: Response: No adverse reaction; IV Status: Completed infusion ca1 20:03 Drug: Rocephin 1 grams Route: IV; Rate: per protocol; Site: left antecubital; ca1 20:43 Follow up: Response: No adverse reaction; IV Status: Completed infusion ca1 20:43 Drug: Cipro 500 mg Route: PO; ca1 21:33 Follow up: Response: No adverse reaction ca1 Disposition: 06/24/19 21:11 Discharged to Home. Impression: Dysuria, Urinary tract infection, site not specified. - Condition is Stable. - Discharge Instructions: Dysuria, Urinary Tract Infection, Adult, Urinary Tract Infection, Adult, [id number]. - Prescriptions for Cipro 250 mg Oral Tablet - take 1 tablet by ORAL route every 12 hours; 14 tablet. Bactrim DS 800- 160 mg Oral Tablet - take 1 tablet by ORAL route every 12 hours for 5 days; 10 tablet. Bentyl 20 mg Oral Tablet - take 1 tablet by ORAL route every 6 hours As needed; 20 tablet. Miralax 17 gram/dose Oral - take 1 packet by ORAL route once daily dilute powder in 8 ounces of water or juice; 14 packet. - Medication Reconciliation Form, Thank You Letter, Antibiotic Education, Prescription Opioid Use form. - Follow up: Private Physician; When: 2 - 3 days; Reason: Recheck today's complaints, Continuance of care, Re-evaluation by your physician. - Problem is new. - Symptoms have improved. Signatures: Dispatcher [employer] EDCarley Hodge RN RN ajBandar Huddleston MD MD cha Therrien, Shelly, STORE RECEIVING CLERK-C STORE RECEIVING CLERK-Csnw Asuncion Sanches RN RN ca1 Corrections: (The following items were deleted from the chart) 21:33 21:11 06/24/2019 21:11 Discharged to Home. Impression: Dysuria; Urinary tract ca1 infection, site not specified. Condition is Stable. Discharge Instructions: Dysuria, Urinary Tract Infection, Adult, Urinary Tract Infection, Adult, [id number]. Prescriptions for Cipro 250 mg Oral Tablet - take 1 tablet by ORAL route every 12 hours; 14 tablet, Bactrim DS 800-160 mg Oral Tablet - take 1 tablet by ORAL route every 12 hours for 5 days; 10 tablet, Bentyl 20 mg Oral Tablet - take 1 tablet by ORAL route every 6 hours As needed; 20 tablet, Miralax 17 gram/dose Oral - take 1 packet by ORAL route once daily dilute powder in 8 ounces of water or juice; 14 packet. and Forms are Medication Reconciliation Form, Thank You Letter, Antibiotic Education, Prescription Opioid Use. Follow up: Private Physician; When: 2 - 3 days; Reason: Recheck today's complaints, Continuance of care, Re-evaluation by your physician. Problem is new. Symptoms have improved. snw
[2019-06-24 21:37] VITALS: TEMP 97.4
[2019-06-24 21:39] VITALS: O2SAT 100
[2019-06-24 21:41] VITALS: BP 99/57
--- NOTE | 2019-06-25 08:11 | RAD REPORT ---
EXAM DESCRIPTION: US - Renal Ultrasound-Limited - 06/24/2019 9:03 pm CLINICAL HISTORY: Abdominal and pelvic pain, urinary retention, history of left ureter injury during hysterectomy with subsequent ureter stent placement COMPARISON: None. FINDINGS: The right kidney measures 8.0 x 3.4 x 4.6 cm. The left kidney measures 10.4 x 4.4 x 5.3 c m. Size asymmetry may be more related to technical factors than true asymmetry. Renal cortical thickn ess and echogenicity are normal. No hydronephrosis or suspicious renal mass. Urinary bladder is contracted limiting assessment. No gross abnormality. IMPRESSION: No hydronephrosis or suspicious renal mass. No other significant findings.
== END 2019-06-24 21:33 | disposition home or self-care (01) ==
LOC: ER 17:21
DX: N39.0 Urinary tract infection, site not specified (principal); F17.210 Nicotine dependence, cigarettes, uncomplicated; E03.9 Hypothyroidism, unspecified; Z88.0 Allergy status to penicillin
CPT/HCPCS: 96365; 96361; 87088; 85025; 87086; 36415; 87077; 87186; 81003; 80053; 74018; 76775; 99284; J0696; J7030

== ENCOUNTER 2023-04-25 18:10 | Emergency (ER) | payer BC ==
--- OUTSIDE RECORDS SUMMARY | 2023-04-25 18:15 | XMS REPORT | Continuity of Care Document ---
:1970 Author Organization [facility] t Address [address] [place] [id number] Care Team Providers Name Role Phone JOEL KIRAN JR Primary Care Physician Unavailable DOV MARROQUIN Attending Clinician Unavailable Elizabeth Cervantes Attending Clinician Unavailable [email or web address]_Kadiyala_S Attending Clinician Unavailable LE RYAN Attending Clinician Unavailable LE RYAN Attending Clinician Unavailable Doctor Unassigned, Princess Anne Attending Clinician Unavailable ERSEBASTIAN_R Attending Clinician Unavailable MILTON GEORGE Attending Clinician Unavailable GC_GCBZW_Kadiyala_S Admitting Clinician Unavailable ERAMANDEEPON_Miguel Angel Admitting Clinician Unavailable MILTON GEORGE Admitting Clinician Unavailable Payers Payer Name Policy Type Policy Number Effective Date Expiration Date S [facility] [id number] 2022 00:00:00 LOULOU TRAYLOR [id number] 2019 00:00:00 Problems Condition Condition Condition Status Onset Resolution Last Treating Co mments Source Name Details Category Date Date Treatment Clinician Date Left Left Disease Active 2018-[address] [facility] [facility]teral [facility] 2 [facility] injury [facility]: Medical [address] [place] [address] [id number] Lumbar Problem Active Common degenerati Spirit ve disc - CHI disease [facility] [id number] Encounter Problem Active Com mon for Spirit tobacco - CHI use cessation [facility] counseling Medica l Center Dermatitis Dermatitis Problem Active C ommon of of Spirit external external - CHI ear ear [facility] [id number] Cigarette Problem Active Comm on nicotine Spirit dependence - [facility] without [facility] Tension-ty Tension-ty Problem Active C ommon pe pe Spirit headache headache, - CHI not St intractabl [facility] e, Medical unspecifie Center d chronicity pattern Postmenopa Postmenopa Problem Active C ommon usal usal [facility] [id number] Psoriasis Problem Active Commo n Spirit [facility] [id number] Acquired Problem Active Comm on hypothyroi [facility] dism [facility] Otalgia Ear pain, Problem Active Commo n right [facility] Primary Primary Problem Active Common insomnia insomnia [facility] Mixed Mixed Problem Active Common hyperlipid hyperlipid Sp emilio emia emia [facility] Seasonal Seasonal Problem Active Commo n allergy allergies [facility] Allergies, Adverse Reactions, Alerts Allergy Allergy Status Severity Reaction(s) Onset Inactive Treating Comm ents Source Name Type Date Date Clinician PENICILL DRUG Active Unknown-Cmnt 2022-06 Un tres IN INGREDI 0-06 ity of 00:00: [place] [address] [place] [address] Branch Penicill Propensi Active Unknown - 2022-06 Uni vers in ty to See comments 0-06 ity of adverse 00:00: [place] reaction 00 Medical s Branch Penicill Drug Active Rash 2018-[address] [facility] ins Allergy 2-05 [facility] 00:00: Medical 00 [place] PENICILL Allergy Active Low Rash 2018-[address] [facility] INS 2-05 [facility] 00:00: Medical 00 Center 0 Drug Active rash Common allergy [facility] NO KNOWN Drug Active Univers ALLERGIE Class ity of S [facility] Social History Social Habit Start Date Stop Date Quantity Comments Source History SDOH [facility] Alcohol Std Drinks Medica l Center History SDOH [facility] Alcohol Binge Medical Pam ter History of tobacco Cigarette Smoker University of use [facility] Sexual orientation Univer [facility] Tobacco use and 2023-03-30 2023-03-30 Smokeless Universit y of exposure 00:00:00 00:00:00 tobacco non-user [place] Me dical Branch History of Social 2023-03-30 2023-03-30 Univers ity of function 00:00:00 00:00:00 [facility] Alcohol intake 2019-07-08 2019-07-08 Current drinker PARISA huynh [place] 00:00:00 00:00:00 of alcohol Medical Center (finding) History SDOH 2019-05-29 2019-05-[address] [facility] Alcohol Frequency 00:00:00 00:00:00 [facility] Alcohol Comment 2019-05-29 2019-05-[address] Tesha kes 00:00:00 00:00:00 [facility] Sex Assigned At [address] Tesha kes 00:00:00 00:00:00 [facility] Center Smoking Status Start Date Stop Date Source Tobacco smoking consumption Univ ersity [facility] [place] Smokes tobacco daily 2023-03-30 00:00:00 Univers ity of [facility] Never smoked tobacco [facility] Medications Ordered Filled Start Stop Current Ordering Indication Dosage Frequency Signature Comments Components Source Medication Medication Date Date Medication? Clinician (SIG) Name Name metroNIDAZO 2022-06 Yes [id number] 500mg Take 1 Univers LE (FLAGYL) 0-09 tablet by ity of 500 mg 00:00: mouth [place] tablet 00 every 12 Medical (twelve) Branch hours. metroNIDAZO 2022-06 Yes [id number] 500mg Take 1 Univers LE (FLAGYL) 0-09 tablet by ity of 500 mg 00:00: mouth [place] tablet 00 every 12 Medical (twelve) Branch hours. HYDROCODONE 2022-06 Yes Take by Uni vers -ACETAMINOP 0-06 mouth. ity of HEN ORAL 10:14: [address] Levothyroxi 2022-06 Yes Take by Uni vers ne 125 mcg 0-06 mouth. ity of capsule 10:14: [address] HYDROCODONE 2022-06 Yes Take by Uni vers -ACETAMINOP 0-06 mouth. ity of HEN ORAL 10:14: [address] Levothyroxi 2022-06 Yes Take by Uni vers ne 125 mcg 0-06 mouth. ity of capsule 10:14: [address] HYDROCODONE 2022-06 Yes Take by Uni vers -ACETAMINOP 0-06 mouth. ity of HEN ORAL 10:14: [address] Levothyroxi 2022-06 Yes Take by Uni vers ne 125 mcg 0-06 mouth. ity of capsule 10:14: [address] HYDROCODONE 2022-06 Yes Take by Uni vers -ACETAMINOP 0-06 mouth. ity of HEN ORAL 10:14: [address] Levothyroxi 2022-06 Yes Take by Uni vers ne 125 mcg 0-06 mouth. ity of capsule 10:14: [address] Venlafaxine Venlafaxine No 2{capsu QD Venlafaxin HCl ER 37.5 HCl ER 37.5 7-29 le} e HCl ER MG MG 00:00: 37.5 MG 00 Venlafaxine Venlafaxine No 2{capsu QD Venlafaxin HCl ER 37.5 HCl ER 37.5 7-29 le} e HCl ER MG MG 00:00: 37.5 MG 00 Venlafaxine Venlafaxine No 2{capsu QD Venlafaxin HCl ER 37.5 HCl ER 37.5 7-29 le} e HCl ER MG MG 00:00: 37.5 MG 00 Triamcinolo Triamcinolo 2020-0 Yes Na Cervantes 1 Common ne ne 11-23 applicatio Spirit Acetonide Acetonide 00:00: n to - C HI 00 affected [facility] Triamcinolo Triamcinolo 2020-0 No 1{appli BID Triamcinol ne ne 11-23 cation_ one Acetonide Acetonide 00:00: to_affe Acetonide 0.1 % 0.1 % 00 cted_ar 0.1 % ea} Triamcinolo Triamcinolo 2020-0 No 1{appli BID Triamcinol ne ne 11-23 cation_ one Acetonide Acetonide 00:00: to_affe Acetonide 0.1 % 0.1 % 00 cted_ar 0.1 % ea} Triamcinolo Triamcinolo 2020-0 No 1{appli BID Triamcinol ne ne 11-23 cation_ one Acetonide Acetonide 00:00: to_affe Acetonide 0.1 % 0.1 % 00 cted_ar 0.1 % ea} Triamcinolo Triamcinolo 2020-0 No 1{appli BID Triamcinol ne ne 6 cation_ one Acetonide Acetonide 00:00: to_affe Acetonide 0.1 % 0.1 % 00 cted_ar 0.1 % ea} Triamcinolo Triamcinolo No 1{appli BID Triamcinol ne ne 6 cation_ one Acetonide Acetonide 00:00: to_affe Acetonide 0.1 % 0.1 % 00 cted_ar 0.1 % ea} Zofran Zofran Yes Na Cervantes as needed C ommon 3-26 for nausea Spirit 00:00: - CHI 00 [facility] mirabegron 2018-06 Yes 50mg QD Take 2 CHI S t (MYRBETRIQ) 2-10 tablets Kaye 25 mg Tb24 00:00: (50 mg Medic al ER tablet 00 total) by Cente r mouth daily. neomycin-ba 2018-06 Yes 1{packe QD Apply [address] citracnZn-p 2-10 t} packet Kaye olymyxnB 00:00: topically Medi zoila (NEOSPORIN) 00 daily. Center 3.5-400-5,0 00 mg-unit-uni t OiPk packet levothyroxi 2018-06 Yes 50ug Take [address] ne 2-09 mcg by Kaye (SYNTHROID, 17:24: mouth Medic al LEVOTHROID) 57 Every Center 50 MCG morning on tablet an empty stomach. gabapentin 2018-06 Yes 800mg Q.[id number] Take [address] (NEURONTIN) 2-09 [id number] mg by Gricelda he 800 MG 17:24: 3D mouth 3 Medical tablet 57 (three) Center times daily. HYDROcodone 2018-06 Yes 1{tbl} Take [address] -acetaminop 2-09 tablet by Manuelito maria (NORCO 17:24: mouth Medica l 10-325) 57 every 6 Center 10-325 mg (six) per tablet hours as needed for Pain. Lactobacill 2018-06 Yes 1{tbl} Q.5D Take [address] us 2-09 tablet by Kaye acidoph-L.b 00:00: mouth 2 Med ical ulgar 00 (two) Center (FLORANEX) times 1 million daily. cell Tab per tablet Azithromyci Azithromyci 2019-0 Yes Na Cervantes 2 tablets Common n n 5-22 on the Spirit 00:00: first day, - [facility]I [address] [facility] daily for Medical 4 days Center Duloxetine Duloxetine Yes Na Cervantes 1 capsule Common HCl HCl [facility] Mirtazapine Mirtazapine Yes Na Cervantes 1 tablet Common at bedtime [facility] Levothyroxi Levothyroxi Yes Na Cervantes TAKE 1 Common ne Sodium ne Sodium TABLET BY Spirit MOUTH ONCE - CHI DAILY IN [facility] ON Medical AN EMPTY Center STOMACH Levothyroxi Levothyroxi Yes Na Cervantes 1 tablet Common ne Sodium ne Sodium on an Spir it empty - CHI stomach in [facility] Loratadine Loratadine Yes Na Cervantes [address] [facility] Gabapentin Gabapentin Yes Na Cervantes [address] [facility] Levothroid Levothroid Yes Na Cervantes 1 tablet Common on an Spirit empty - CHI stomach in [facility] Triamcinolo Triamcinolo No 1{appli BID Triamcinol ne ne cation_ one Acetonide Acetonide to_affe Acetonide 0.1 % 0.1 % cted_ar 0.1 % ea} Euthyrox 75 Euthyrox 75 No Euthyrox MCG MCG 75 MCG Gabapentin Gabapentin No 2{table BID Gabapentin 800 MG 800 MG ts} 800 MG Gabapentin Gabapentin No 2{table BID Gabapentin 800 MG 800 MG ts} 800 MG Loratadine Loratadine No 1{table QD Loratadine 10 MG 10 MG t} 10 MG Levothroid Levothroid No QD Levothroid 50 MCG 50 MCG 50 MCG Mirtazapine Mirtazapine No 1{table QD Mirtazapin 15 MG 15 MG t_at_be e 15 MG dtime} DULoxetine DULoxetine No 1{capsu QD DULoxetine HCl 30 MG HCl 30 MG le} HCl 30 MG Triamcinolo Triamcinolo No 1{appli BID Triamcinol ne ne cation_ one Acetonide Acetonide to_affe Acetonide 0.1 % 0.1 % cted_ar 0.1 % ea} Euthyrox 75 Euthyrox 75 No Euthyrox MCG MCG 75 MCG Levothyroxi Levothyroxi No Levothyrox ne Sodium ne Sodium ine Sodium 50 MCG 50 MCG 50 MCG Levothyroxi Levothyroxi No QD Levothyrox ne Sodium ne Sodium ine Sodium 75 MCG 75 MCG 75 MCG Mirtazapine Mirtazapine No 1{table QD Mirtazapin 15 MG 15 MG t_at_be e 15 MG dtime} Euthyrox 75 Euthyrox 75 No Euthyrox MCG MCG 75 MCG Levothroid Levothroid No QD Levothroid 50 MCG 50 MCG 50 MCG Levothyroxi Levothyroxi No Levothyrox ne Sodium ne Sodium ine Sodium 50 MCG 50 MCG 50 MCG Triamcinolo Triamcinolo No 1{appli BID Triamcinol ne ne cation_ one Acetonide Acetonide to_affe Acetonide 0.1 % 0.1 % cted_ar 0.1 % ea} DULoxetine DULoxetine No 1{capsu QD DULoxetine HCl 30 MG HCl 30 MG le} HCl 30 MG Gabapentin Gabapentin No 2{table BID Gabapentin 800 MG 800 MG ts} 800 MG Loratadine Loratadine No 1{table QD Loratadine 10 MG 10 MG t} 10 MG Loratadine Loratadine No 1{table QD Loratadine 10 MG 10 MG t} 10 MG Levothyroxi Levothyroxi No QD Levothyrox ne Sodium ne Sodium ine Sodium 75 MCG 75 MCG 75 MCG Euthyrox 75 Euthyrox 75 No Euthyrox MCG MCG 75 MCG Triamcinolo Triamcinolo No 1{appli BID Triamcinol ne ne cation_ one Acetonide Acetonide to_affe Acetonide 0.1 % 0.1 % cted_ar 0.1 % ea} Gabapentin Gabapentin No 2{table BID Gabapentin 800 MG 800 MG ts} 800 MG Mirtazapine Mirtazapine No 1{table QD Mirtazapin 15 MG 15 MG t_at_be e 15 MG dtime} Loratadine Loratadine No 1{table QD Loratadine 10 MG 10 MG t} 10 MG Levothyroxi Levothyroxi No QD Levothyrox ne Sodium ne Sodium ine Sodium 75 MCG 75 MCG 75 MCG Euthyrox 75 Euthyrox 75 No Euthyrox MCG MCG 75 MCG Triamcinolo Triamcinolo No 1{appli BID Triamcinol ne ne cation_ one Acetonide Acetonide to_affe Acetonide 0.1 % 0.1 % cted_ar 0.1 % ea} Gabapentin Gabapentin No 2{table BID Gabapentin 800 MG 800 MG ts} 800 MG Mirtazapine Mirtazapine No 1{table QD Mirtazapin 15 MG 15 MG t_at_be e 15 MG dtime} Mirtazapine Mirtazapine No 1{table QD Mirtazapin 15 MG 15 MG t_at_be e 15 MG dtime} Levothyroxi Levothyroxi No QD Levothyrox ne Sodium ne Sodium ine Sodium 75 MCG 75 MCG 75 MCG Loratadine Loratadine No 1{table QD Loratadine 10 MG 10 MG t} 10 MG Vital Signs Vital Name Observation Time Observation Value Comments Source Systolic blood 2023-03-30 15:13:00 121 mm[facility]Hg[facility] 2023-03-30 15:13:00 85 [facility]Hg[facility] 2023-03-30 15:13:00 73 /min [facility] Body temperature 2023-03-30 15:13:00 36.72 Rubi [facility] Respiratory rate 2023-03-30 15:13:00 17 /min [facility] Body height 2023-03-30 15:13:00 157.5 cm [facility] Body weight 2023-03-30 15:13:00 81.874 kg [facility] BMI 2023-03-30 15:13:00 33.01 kg/m2 [facility] Procedures Procedure Date / Time Performed Performing Clinician [facility] e ASSIGNMENT OF BENEFITS 2023-03-30 14:56:37 Doctor Unassigned, No [facility] Encounters Start End Encounter Admission Attending Care Care Encounter Source Date/Time Date/Time Type Type Clinicians Facility Department ID 2023-04-06 Inpatient KORY LOPEZ [facility] [id number] [place] 11:00:00 [id number] [id number] [facility] 2022-02-15 Outpatient Elizabeth Cervantes [facility] [id number] 2 Common 10:27:[id number] [facility] 2022-02-10 Outpatient Cervantes, Na STLMLC STLMLC [id number] 2 Common 16:09:00 [facility] 2022-01-19 Outpatient Cervantes, Na STLMLC STLMLC [id number] 2 Common 14:20:01 [facility] 2021-07-20 Outpatient Cervantes, Na STLMLC STLMLC [id number] 2 Common 13:58:[id number] [facility] 2021-07-20 Outpatient Cervantes, Na STLMLC STLMLC [id number] 2 Common 13:58:[id number] [facility] 2021-07-20 Outpatient Cervantes, Na STLMLC STLMLC [id number] 2 Common 13:54:[id number] [facility] 2021-07-20 Outpatient Cervantes, Na STLMLC STLMLC [id number] 2 Common 12:31:[id number] [facility] 2021-07-20 Outpatient Cervantes, Na STLMLC STLMLC [id number] 2 Common 12:06:[id number] [facility] 2021-07-20 Outpatient Cervantes, Na STLMLC STLMLC [id number] 2 Common 12:03:[id number] [facility] 2021-07-20 Outpatient Cervantes, Na STLMLC STLMLC [id number] 2 Common 11:56:[id number] [facility] 2021-07-20 Outpatient Cervantes, Na STLMLC STLMLC [id number] 2 Common 11:38:[id number] [facility] 2021-07-20 Outpatient Cervantes, Na STLMLC STLMLC [id number] 2 Common 11:38:[id number] [facility] 2021-07-20 Outpatient Cervantes, Na STLMLC STLMLC [id number] 2 Common 11:38:[id number] [facility] 2021-07-20 Outpatient Cervantes, Na STLMLC STLMLC [id number] 2 Common 11:29:[id number] [facility] 2021-07-20 Outpatient Cervantes, Na STLMLC STLMLC [id number] 2 Common 11:23:[id number] [facility] 2021-07-20 [facility] [id number] Common 11:16:[id number] [facility] 2021-07-20 [facility] [id number] 2 Common 11:08:[id number] [facility] 2023-04-21 2023-04-21 Outpatient GC_GCBZW_Ka PRIV PRIV [id number] [facility] 00:00:00 00:00:00 diyala_S [id number] [facility] 2023-04-20 2023-04-[address] [facility] [id number] [facility] 16:30:00 16:30:00 [facility]-04-02 2023-04-02 [facility] [id number] Univers 00:00:00 00:00:00 Management sLe 350.1.13.10 ity [place] [id number] [address] 2023-04-02 2023-04-02 [facility] [id number] Univers 00:00:00 00:00:00 sLe 350.1.13.10 it[place] [id number] [address] 2023-03-30 2023-03-30 Office [facility] [id number] [facility] 10:00:00 10:37:30 Visit sLe 350.1.13.10 ity [place] [id number] [address] 2023-03-30 2023-03-[address] [facility] [id number] Univers 10:00:00 10:37:30 LOCKE-CRISTINA LE ity of [facility] 2023-03-30 2023-03-30 Orders Doctor WENDY [id number] Univers 00:00:00 00:00:00 Only Unassigned, RYLEE 350.1.13.10 ity of [place] [facility] 4.2.7.2.686 Alex as [id number] [address] 2022-03-01 2022-03-01 (TEL) STLMLC STLMLC [id number] Co mmon 00:00:00 00:00:00 [facility] 2022-01-31 2022-01-31 (TEL) STLMLC STLMLC [id number] Co mmon 00:00:00 00:00:00 [facility] 2022-01-19 2022-01-19 (TEL) STLMLC STLMLC [id number] Co mmon 00:00:00 00:00:00 [facility] 2021-12-01 2021-12-01 Outpatient ERICKSON_R [facility] [address] [place] 10:39:00 10:39:00 [id number] [facility] 2021-04-27 2021-04-27 OFFICE STLMLC STLMLC [id number] Co mmon 00:00:00 00:00:00 VISIT EST Spir it PT LEVEL 3 [facility] 2021-03-22 2021-03-22 (TEL) STLMLC STLMLC [id number] Co mmon 00:00:00 00:00:00 [facility] 2020-12-09 2020-12-09 Outpatient STLMLC STLMLC [id number] Common 00:00:00 00:00:00 [facility] 2020-05-12 2020-05-12 Outpatient STLMLC STLMLC [id number] Common 00:00:00 00:00:00 [facility] 2020-05-12 2020-05-12 Outpatient STLMLC STLMLC [id number] Common 00:00:00 00:00:00 [facility] 2020-02-11 2020-02-11 [facility] [id number] Common 12:00:00 12:00:[address] Sp[address] [facility] 2020-02-03 2020-02-03 Outpatient [facility] [id number] Common 16:20:00 16:20:[address] Sp[address] [facility] 2020-02-02 2020-02-02 Out[facility] [id number] Common 14:46:00 14:46:[address] Sp[address] [facility] 2019-11-24 2019-11-24 Outpatient [facility] [id number] Common 16:00:00 16:00:[address] Sp[address] [facility] 2019-11-14 2019-11-14 Outpatient EL ARIEL, SLE SLE [id number] [facility] 00:00:00 00:00:00 [facility] 2019-11-14 2019-11-14 Outpatient ARIEL, SLEH SLEH [id number] [facility] 00:00:00 00:00:00 MILTON 2019-10-29 2019-10-29 Outpatient SLEH SLE[facility] [id number] [facility] 00:00:00 00:00:00 [id number] 2019-10-08 2019-10-08 Outpatient SLEH SLEH [id number] [facility] 00:00:00 00:00:00 [id number] 2019-09-18 2019-09-18 [facility] [id number] Common 14:24:00 14:24:[address] Sp[address] [facility] 2019-09-10 2019-09-10 Outpatient [facility] [id number] Common 11:17:00 11:17:[address] Sp[address] [facility] 2019-08-14 2019-08-14 Outpatient [facility] [id number] Common 15:26:00 15:26:[address] Sp[address] [facility] 2019-05-15 2019-05-15 Outpatient Jose Armando Solomon [id number] Common 08:40:00 08:40:[address] [facility] 2019-02-12 2019-02-12 Outpatient Jose Armando Solomon [id number] Common 09:00:00 09:00:[address] [employer] [facility] Results Test Description Test Time Test Comments Results Result [facility] e Comments US, RENAL, 2019-11-14 Reason for FINAL REPORT PATIENT COMPLETE 16:59:00 Exam:->[id number] ID: [id number] EXAM: US, RENAL, COMPLETEDATE: 11/14/2019 3:43 PM INDICATION: [id number] left ureteral injuryCOMPARISON: None FINDINGS:Grayscale and color flow Doppler ultrasound of the kidneys and urinary bladder was performed. Spectral waveform analysis of the vessels was also performed. Right kidney: 10.1 x 3.9 x 4.8 cm. No hydronephrosis or contour deforming mass. Cortical thickness and echogenicity normal. Normal-appearing blood flow. Left kidney: 10.7 x 4.0 x 4.7 cm. No hydronephrosis or contour deforming mass. Cortical thickness and echogenicity normal. Normal-appearing blood flow. Urinary bladder: Urinary bladder has an unremarkable appearance. IMPRESSION:Symmetric appearing kidneys with no hydronephrosis or contour deforming mass. Unremarkable appearance of the nondistended urinary bladder. Signed: Shashi Gaona MDReport Verified Date/Time: 11/14/2019 16:59:17 Reading Location: [facility] Reading Room [address] [place] [address] UE EXAM 2019-06-03 Surgical Pathology 15:55:00 Report Case: [id number] Authorizing Provider: Milton George MD Collected: 05/29/20198 Ordering Location: [facility] Received: 05/30/2019 0928 SERVICES Pathologist: Wilman Lerma MD Specimen: Ureter, Left, distal left ureter URETER, LEFT DISTAL, RESECTION: - NO PATHOLOGIC DIAGNOSIS Signing Pathologist Direct Phone Line: [phone] ically signed by Kavon Philip MD for Wilman Lerma MD on 06/03/2019 at 3:55 PMThe urothelial layer is almost completely denuded. [id number] obstruction Ureter Part A received in formalin labeled with the patient's name, accession number and "left distal ureter" is a 1.1 cm long and 0.3 cm in diameter hamilton-white to pink partial ureter. The specimen is unoriented. The specimen is serially sectioned and entirely submitted in cassette A1. NW/ew Performed. C. DIFFICILE GDH TOXIN 2019-06-02 10:43:00 Test Item Value Reference Range Interpretation Comme nts CDT TOXIN (test code = Negative Negative [id number]) CDT GDH ANTIGEN (test code = Negative Negative No indication of Clostridium [id number]) difficile infec tion and no colonization. D iscontinue enteric isolati on and therapy. Testing performed by [employer] Rapid Cassette Assay. For GDH, published sensitivity of the assay is 98.7% compared to cytotoxicity testing. For Toxin AB, published sensitivity is 87.8% and specificity 99.4% compared to cytotoxicity testing.Verification of kit performance was done by the [facility] MicrobiologyLab prior to clinical use.CBC W/PLT COUNT & AUTO [id number] 06:11:00 Test Item Value Reference Range Interpretation Comments WHITE BLOOD CELL COUNT (BEAKER) 6.1 K/ L 3.5-10.5 (test code = 775) RED BLOOD CELL COUNT (BEAKER) 3.11 M/ L 3.93-5.22 L (test code = 761) HEMOGLOBIN (BEAKER) (test code = 8.8 GM/DL 11.2-15.7 L 410) HEMATOCRIT (BEAKER) (test code = 28.1 % 34.1-44.9 L 411) MEAN CORPUSCULAR VOLUME (BEAKER) 90.4 fL 79.4-94.8 (test code = 753) MEAN CORPUSCULAR HEMOGLOBIN 28.3 pg 25.6-32.2 (BEAKER) (test code = 751) MEAN CORPUSCULAR HEMOGLOBIN CONC 31.3 GM/DL 32.2-35.5 L (BEAKER) (test code = 752) RED CELL DISTRIBUTION WIDTH 15.9 % 11.7-14.4 H (BEAKER) (test code = 412) PLATELET COUNT (BEAKER) (test 241 K/CU MM 150-450 code = 756) MEAN PLATELET VOLUME (BEAKER) 10.2 fL 9.4-12.3 (test code = 754) NUCLEATED RED BLOOD CELLS 0 /100 WBC 0-0 (BEAKER) (test code = 413) NEUTROPHILS RELATIVE PERCENT 51 % (BEAKER) (test code = 429) LYMPHOCYTES RELATIVE PERCENT 40 % (BEAKER) (test code = 430) MONOCYTES RELATIVE PERCENT 6 % (BEAKER) (test code = 431) EOSINOPHILS RELATIVE PERCENT 3 % (BEAKER) (test code = 432) BASOPHILS RELATIVE PERCENT 0 % (BEAKER) (test code = 437) NEUTROPHILS ABSOLUTE COUNT 3.06 K/ L 1.56-6.13 (BEAKER) (test code = 670) LYMPHOCYTES ABSOLUTE COUNT 2.42 K/ L 1.18-3.74 (BEAKER) (test code = 414) MONOCYTES ABSOLUTE COUNT (BEAKER) 0.34 K/ L 0.24-0.36 (test code = 415) EOSINOPHILS ABSOLUTE COUNT 0.20 K/ L 0.04-0.36 (BEAKER) (test code = 416) BASOPHILS ABSOLUTE COUNT (BEAKER) 0.02 K/ L 0.01-0.08 (test code = 417) IMMATURE GRANULOCYTES-RELATIVE 0 % 0-1 PERCENT (BEAKER) (test code = 2801) BASIC METABOLIC [id number] 06:23:00 Test Item Value Reference Range Interpretation Comments SODIUM (BEAKER) 140 meq/L 136-145 (test code = 381) POTASSIUM (BEAKER) 3.7 meq/L 3.5-5.1 (test code = 379) CHLORIDE (BEAKER) 109 meq/L 98-107 H (test code = 382) CO2 (BEAKER) (test 24 meq/L 22-29 code = 355) BLOOD UREA NITROGEN 4 mg/dL 7-21 L (BEAKER) (test code = 354) CREATININE (BEAKER) 0.81 mg/dL 0.57-1.25 (test code = 358) GLUCOSE RANDOM 83 mg/dL 70-105 (BEAKER) (test code = 652) CALCIUM (BEAKER) 7.9 mg/dL 8.4-10.2 L (test code = 697) EGFR (BEAKER) (test 76 mL/min/1.73 ESTIMA FLIP GFR IS code = 1092) sq m NOT ACCURATE CREATININE CLEARANCE IN PREDICTING GLOMERULAR FILTRATION RATE . ESTIMATED GFR I S NOT APPLICABLE FOR DIALYSIS PATIEN TS. CBC W/PLT COUNT & AUTO [id number] 05:39:00 Test Item Value Reference Range Interpretation Comments WHITE BLOOD CELL COUNT (BEAKER) 6.3 K/ L 3.5-10.5 (test code = 775) RED BLOOD CELL COUNT (BEAKER) 3.00 M/ L 3.93-5.22 L (test code = 761) HEMOGLOBIN (BEAKER) (test code = 8.5 GM/DL 11.2-15.7 L 410) HEMATOCRIT (BEAKER) (test code = 27.3 % 34.1-44.9 L 411) MEAN CORPUSCULAR VOLUME (BEAKER) 91.0 fL 79.4-94.8 (test code = 753) MEAN CORPUSCULAR HEMOGLOBIN 28.3 pg 25.6-32.2 (BEAKER) (test code = 751) MEAN CORPUSCULAR HEMOGLOBIN CONC 31.1 GM/DL 32.2-35.5 L (BEAKER) (test code = 752) RED CELL DISTRIBUTION WIDTH 15.9 % 11.7-14.4 H (BEAKER) (test code = 412) PLATELET COUNT (BEAKER) (test 243 K/CU MM 150-450 code = 756) MEAN PLATELET VOLUME (BEAKER) 10.2 fL 9.4-12.3 (test code = 754) NUCLEATED RED BLOOD CELLS 0 /100 WBC 0-0 (BEAKER) (test code = 413) NEUTROPHILS RELATIVE PERCENT 50 % (BEAKER) (test code = 429) LYMPHOCYTES RELATIVE PERCENT 40 % (BEAKER) (test code = 430) MONOCYTES RELATIVE PERCENT 6 % (BEAKER) (test code = 431) EOSINOPHILS RELATIVE PERCENT 3 % (BEAKER) (test code = 432) BASOPHILS RELATIVE PERCENT 0 % (BEAKER) (test code = 437) NEUTROPHILS ABSOLUTE COUNT 3.13 K/ L 1.56-6.13 (BEAKER) (test code = 670) LYMPHOCYTES ABSOLUTE COUNT 2.54 K/ L 1.18-3.74 (BEAKER) (test code = 414) MONOCYTES ABSOLUTE COUNT (BEAKER) 0.39 K/ L 0.24-0.36 H (test code = 415) EOSINOPHILS ABSOLUTE COUNT 0.20 K/ L 0.04-0.36 (BEAKER) (test code = 416) BASOPHILS ABSOLUTE COUNT (BEAKER) 0.01 K/ L 0.01-0.08 (test code = 417) IMMATURE GRANULOCYTES-RELATIVE 0 % 0-1 PERCENT (BEAKER) (test code = 2801) BASIC METABOLIC [id number] 06:24:00 Test Item Value Reference Range Interpretation Comments SODIUM (BEAKER) 140 meq/L 136-145 (test code = 381) POTASSIUM (BEAKER) 3.5 meq/L 3.5-5.1 (test code = 379) CHLORIDE (BEAKER) 111 meq/L 98-107 H (test code = 382) CO2 (BEAKER) (test 22 meq/L 22-29 code = 355) BLOOD UREA NITROGEN 6 mg/dL 7-21 L (BEAKER) (test code = 354) CREATININE (BEAKER) 0.85 mg/dL 0.57-1.25 (test code = 358) GLUCOSE RANDOM 92 mg/dL 70-105 (BEAKER) (test code = 652) CALCIUM (BEAKER) 7.7 mg/dL 8.4-10.2 L (test code = 697) EGFR (BEAKER) (test 72 mL/min/1.73 ESTIMA FLIP GFR IS code = 1092) sq m NOT ACCURATE CREATININE CLEARANCE IN PREDICTING GLOMERULAR FILTRATION RATE . ESTIMATED GFR I S NOT APPLICABLE FOR DIALYSIS PATIEN TS. HEMOGLOBIN AND [id number] 03:40:00 Test Item Value Reference Range Interpretation Comments HEMOGLOBIN (BEAKER) (test code = 9.5 GM/DL 11.2-15.7 L 410) HEMATOCRIT (BEAKER) (test code = 31.5 % 34.1-44.9 L 411) BASIC METABOLIC [id number] 08:01:00 Test Item Value Reference Range Interpretation Comments SODIUM (BEAKER) 138 meq/L 136-145 (test code = 381) POTASSIUM (BEAKER) 4.2 meq/L 3.5-5.1 (test code = 379) CHLORIDE (BEAKER) 110 meq/L 98-107 H (test code = 382) CO2 (BEAKER) (test 18 meq/L 22-29 L code = 355) BLOOD UREA NITROGEN 10 mg/dL 7-21 (BEAKER) (test code = 354) CREATININE (BEAKER) 1.07 mg/dL 0.57-1.25 (test code = 358) GLUCOSE RANDOM 120 mg/dL 70-105 H (BEAKER) (test code = 652) CALCIUM (BEAKER) 7.6 mg/dL 8.4-10.2 L (test code = 697) EGFR (BEAKER) (test 55 mL/min/1.73 ESTIMA FLIP GFR IS code = 1092) sq m NOT ACCURATE CREATININE CLEARANCE IN PREDICTING GLOMERULAR FILTRATION RATE . ESTIMATED GFR I S NOT APPLICABLE FOR DIALYSIS PATIEN TS. HEMOGLOBIN AND [id number] 07:38:00 Test Item Value Reference Range Interpretation Comments HEMOGLOBIN (BEAKER) (test code = 10.7 GM/DL 11.2-15.7 L 410) HEMATOCRIT (BEAKER) (test code = 35.0 % 34.1-44.9 411) RAD, ABDOMEN/KUB, 1 VIEW [id number] 01:18:00Reason for exam:->post-op evaluation of ureteral stentFINAL [...] skeleton. Signed: Caroline Santa MDReport Verified Date/Time: 05/30/2019 01:18:26 BASIC METABOLIC [id number] 00:34:00 Test Item Value Reference Range Interpretation Comments SODIUM (BEAKER) 140 meq/L 136-145 (test code = 381) POTASSIUM (BEAKER) 5.2 meq/L 3.5-5.1 H Specimen slightly (test code = 379) hemolyzed CHLORIDE (BEAKER) 113 meq/L 98-107 H (test code = 382) CO2 (BEAKER) (test 17 meq/L 22-29 L code = 355) BLOOD UREA NITROGEN 7 mg/dL 7-21 (BEAKER) (test code = 354) CREATININE (BEAKER) 1.07 mg/dL 0.57-1.25 Specimen slightly (test code = 358) hemolyzed GLUCOSE RANDOM 151 mg/dL 70-105 H (BEAKER) (test code = 652) CALCIUM (BEAKER) 7.2 mg/dL 8.4-10.2 L (test code = 697) EGFR (BEAKER) (test 55 mL/min/1.73 ESTIMA FLIP GFR IS code = 1092) sq m NOT ACCURATE CREATININE CLEARANCE IN PREDICTING GLOMERULAR FILTRATION RATE . ESTIMATED GFR I S NOT APPLICABLE FOR DIALYSIS PATIEN TS. HEMOGLOBIN AND [id number] 00:12:00 Test Item Value Reference Range Interpretation Comments HEMOGLOBIN (BEAKER) (test code = 11.9 GM/DL 11.2-15.7 410) HEMATOCRIT (BEAKER) (test code = 38.4 % 34.1-44.9 411) FL, STAFF OCCUPATIONAL THERAPIST IN OR/30 MINUTE [id number] 19:58:00Reason for exam:- >possible bladder injuryFINAL REPORT A fluoroscopic unit was utilized for a procedure performed in the operating room. No interpretation was requested. Please refer to the operative report regarding findings. Please refer to PACS for patient radiation dose information. Signed: Eric Liriano MDReport Verified Date/Time: 05/29/2019 19:58:40 Reading Location: [address] Consult Reading Room BASI METABOLIC [id number] 16:59:00 Test Item Value Reference Range Interpretation Comments SODIUM (BEAKER) 138 meq/L 136-145 (test code = 381) POTASSIUM (BEAKER) 4.0 meq/L 3.5-5.1 (test code = 379) CHLORIDE (BEAKER) 108 meq/L 98-107 H (test code = 382) CO2 (BEAKER) (test 24 meq/L 22-29 code = 355) BLOOD UREA NITROGEN 8 mg/dL 7-21 (BEAKER) (test code = 354) CREATININE (BEAKER) 0.96 mg/dL 0.57-1.25 (test code = 358) GLUCOSE RANDOM 132 mg/dL 70-105 H (BEAKER) (test code = 652) CALCIUM (BEAKER) 8.6 mg/dL 8.4-10.2 (test code = 697) EGFR (BEAKER) (test 63 mL/min/1.73 ESTIMA FLIP GFR IS code = 1092) sq m NOT ACCURATE CREATININE CLEARANCE IN PREDICTING GLOMERULAR FILTRATION RATE . ESTIMATED GFR I S NOT APPLICABLE FOR DIALYSIS PATIEN TS. CBC W/PLT COUNT & AUTO [id number] 16:40:00 Test Item Value Reference Range Interpretation Comments WHITE BLOOD CELL COUNT (BEAKER) 13.7 K/ L 3.5-10.5 H (test code = 775) RED BLOOD CELL COUNT (BEAKER) 4.31 M/ L 3.93-5.22 (test code = 761) HEMOGLOBIN (BEAKER) (test code = 11.9 GM/DL 11.2-15.7 410) HEMATOCRIT (BEAKER) (test code = 38.1 % 34.1-44.9 411) MEAN CORPUSCULAR VOLUME (BEAKER) 88.4 fL 79.4-94.8 (test code = 753) MEAN CORPUSCULAR HEMOGLOBIN 27.6 pg 25.6-32.2 (BEAKER) (test code = 751) MEAN CORPUSCULAR HEMOGLOBIN CONC 31.2 GM/DL 32.2-35.5 L (BEAKER) (test code = 752) RED CELL DISTRIBUTION WIDTH 15.2 % 11.7-14.4 H (BEAKER) (test code = 412) PLATELET COUNT (BEAKER) (test 299 K/CU MM 150-450 code = 756) MEAN PLATELET VOLUME (BEAKER) 10.2 fL 9.4-12.3 (test code = 754) NUCLEATED RED BLOOD CELLS 0 /100 WBC 0-0 (BEAKER) (test code = 413) NEUTROPHILS RELATIVE PERCENT 90 % (BEAKER) (test code = 429) LYMPHOCYTES RELATIVE PERCENT 8 % (BEAKER) (test code = 430) MONOCYTES RELATIVE PERCENT 1 % (BEAKER) (test code = 431) EOSINOPHILS RELATIVE PERCENT 0 % (BEAKER) (test code = 432) BASOPHILS RELATIVE PERCENT 0 % (BEAKER) (test code = 437) NEUTROPHILS ABSOLUTE COUNT 12.35 K/ L 1.56-6.13 H (BEAKER) (test code = 670) LYMPHOCYTES ABSOLUTE COUNT 1.10 K/ L 1.18-3.74 L (BEAKER) (test code = 414) MONOCYTES ABSOLUTE COUNT (BEAKER) 0.17 K/ L 0.24-0.36 L (test code = 415) EOSINOPHILS ABSOLUTE COUNT 0.01 K/ L 0.04-0.36 L (BEAKER) (test code = 416) BASOPHILS ABSOLUTE COUNT (BEAKER) 0.02 K/ L 0.01-0.08 (test code = 417) IMMATURE GRANULOCYTES-RELATIVE 0 % 0-1 PERCENT (BEAKER) (test code = 2805)
[2023-04-25 19:00] LABS: Absolute Lymphocytes (CBC) 1.7 K/uL (0.7-4.9); Hematocrit 42.9 % (36.0-45.0); Lymphocytes % 20.3 % (15.3-44.8); MCV 92.2 fL (80-100); MPV 7.7 fL (7.6-11.3); Platelets 283 thou/uL (152-406); RBC Red Blood Cell Count 4.65 M/uL (3.86-4.86)
[2023-04-25 19:24] LABS: Albumin 4.2 g/dL (3.4-5.0); Bilirubin Total 0.4 mg/dL (0.2-1.0); Magnesium 1.9 mg/dL (1.6-2.4); Potassium 3.8 mEq/L (3.5-5.1); Protein, Total 8.7 g/dL (6.4-8.2); Thyroid Stimulating Hormone 1.17 uIU/mL (0.358-3.740); Troponin High Sensitivity 20.7 pg/mL (<58.9)
--- NOTE | 2023-04-25 20:04 | RAD REPORT ---
EXAM DESCRIPTION: CT - Head Brain Wo Cont - 04/25/2023 7:11 pm CLINICAL HISTORY: CONFUSED COMPARISON: No comparisons TECHNIQUE: Noncontrast head CT images were obtained without IV contrast. Multiplanar reformats were generated and reviewed. All CT scans are performed using dose optimization technique as appropriate and may include automated exposure control or mA/KV adjustment according to patient size. FINDINGS: No intracranial hemorrhage, mass, or edema. Midline structures are unremarkable. Normal ventricular caliber for age. [place]-white matter differentiation is preserved, without evidence of acute infarct. No abnormal extra- axial fluid collections. Mastoid air cells and visualized portions of the paranasal sinuses are clear. No acute bony findings. IMPRESSION: No evidence of an acute intracranial process.
--- NOTE | 2023-04-25 20:05 | RAD REPORT ---
EXAM DESCRIPTION: Zachary Single View04/25/2023 7:34 pm CLINICAL HISTORY: PALPITATIONS COMPARISON: Abdomen 1 View (KUB) dated 06/24/2019; CHEST SINGLE VIEW dated 09/06/2010 TECHNIQUE: Portable AP view of the chest. FINDINGS: The lungs are clear. No pneumothorax or effusion. The cardiomediastinal contours are unre markable. IMPRESSION: No acute cardiopulmonary process.
--- NOTE | 2023-04-25 20:07 | ER ---
Nurse's Notes [facility] Name: More Pedroza Age: 52 yrs Sex: Female : 1970 Arrival Date: 04/25/2023 Time: 18:10 Bed 4 Private MD: Diagnosis: Abnormal Movements Presentation: 04/25 18:26 Chief complaint: Patient states: 2 weeks of dizzy spells, unable to talk at times, ll1 slurred speech at times. States she felt tingly and drowsy today. Sister noticed for the past month that her brain and words aren't connecting. Coronavirus screen: Client denies travel out of the [place] in the last 14 days. At this time, the client does not indicate any symptoms associated with coronavirus-19. Ebola Screen: Patient denies travel to an Ebola-affected area in the 21 days before illness onset. Initial Sepsis Screen: Does the patient meet any 2 criteria? No. Patient's initial sepsis screen is negative. Does the patient have a suspected source of infection? No. Patient's initial sepsis screen is negative. Risk Assessment: Do you want to hurt yourself or someone else? Patient reports no desire to harm self or others. Onset of symptoms was March 25, 2023. 18:26 Method Of Arrival: Ambulatory ll1 18:26 Acuity: ROXIE 2 ll1 Triage Assessment: 18:50 General: Appears in no apparent distress. comfortable, Behavior is calm, cooperative. cm10 Pain: Denies pain. EENT: No deficits noted. No signs and/or symptoms were reported regarding the EENT system. Neuro: No deficits noted. Hidalgo Agitation-Sedation Scale (RASS): 0 - Alert and Calm Level of Consciousness is awake, alert, obeys commands, Oriented to person, place, time, situation, Reports photophobia a syncopal episode. Cardiovascular: No deficits noted. Patient's skin is warm and dry. Respiratory: No deficits noted. Airway is patent Respiratory effort is even, unlabored, Respiratory pattern is regular, symmetrical. GI: No deficits noted. No signs and/or symptoms were reported involving the gastrointestinal system. : No deficits noted. No signs and/or symptoms were reported regarding the genitourinary system. Derm: No deficits noted. No signs and/or symptoms reported regarding the dermatologic system. Skin is intact, Skin is pink, warm \T\ dry. Musculoskeletal: No deficits noted. No signs and/or symptoms reported regarding the musculoskeletal system. Range of motion: intact in all extremities. Historical: - Allergies: 18:24 PENICILLINS; ll1 - PMHx: 18:24 Hypothyroidism; ll1 - PSHx: 18:24 tubal ligation (Hypothyroidism); hysterectomy (Hypothyroidism); abdominal SX ll1 (Hypothyroidism); - Immunization history:: Adult Immunizations up to date. - Social history:: Smoking status: Patient reports the use of cigarette tobacco products, smokes one-half pack cigarettes per day. Screenin:52 [facility] ED Fall Risk Assessment (Adult) History of falling in the last 3 months, cm10 including since admission Yes- physiologic fall (2 pts) Confusion or Disorientation No (0 pts) Intoxicated or Sedated No (0 pts) Impaired Gait No (0 pts) Mobility Assist Device Used No (0 pt) Altered Elimination No (0 pt) Score/Fall Risk Level 0 - 2 = Low Risk Oriented to surroundings, Maintained a safe environment, Provided non-skid footwear, Hourly rounding (assess needs \T\ fall precautionary measures) done. Abuse screen: Denies threats or abuse. Denies injuries from another. Nutritional screening: No deficits noted. Tuberculosis screening: No symptoms or risk factors identified. Assessment: 20:00 Reassessment: Patient appears in no apparent distress at this time. No changes from cm10 previously documented assessment. Patient and/or family updated on plan of care and expected duration. Pain level reassessed. Patient is alert, oriented x 3, equal unlabored respirations, skin warm/dry/pink. Patient states feeling better. Neuro: No deficits noted. Level of Consciousness is awake, alert, obeys commands, Oriented to person, place, time, situation. Cardiovascular: Rhythm is regular. Vital Signs: 18:26 BP 157 / 105; Pulse 74; Resp 17; Temp 98.4; Pulse Ox 100% ; Weight 81.65 kg; Height 5 ll1 ft. 3 in. ; Pain 0/10; 19:30 BP 121 / 73; Pulse 66; Resp 18; Pulse Ox 99% on R/A; cm10 18:26 Body Mass Index 31.89 (81.65 kg, 160.02 cm) [facility] 18:26 Pain Scale: Adult ll1 ED Course: 18:16 Patient arrived in ED. mg5 18:28 Sagar Hassan MD is Attending Physician. ec2 18:28 Triage completed. ll1 18:28 Arm band placed on. ll1 18:45 Missed attempt(s): 20 gauge in right antecubital area. Bleeding controlled, band aid cm10 applied, catheter tip intact. 18:49 CMP Sent. cm10 18:49 CBC with Diff Sent. cm10 18:49 Troponin High Sensitivity Sent. cm10 18:49 T4 Free Sent. cm10 18:49 TSH Sent. cm10 18:49 Magnesium Sent. cm10 18:49 Initial lab(s) drawn, by me, sent to lab. Inserted saline lock: 22 gauge in right cm10 forearm, using aseptic technique. Blood collected. 18:53 Patient has correct armband on for positive identification. Bed in low position. Call cm10 light in reach. Side rails up X2. Provided Education on: ER process and procedures.. 19:12 CT Head Brain wo Cont In Process Unspecified. EDMS 19:36 CXR XRAY In Process Unspecified. EDMS 19:58 UAM Sent. cm10 20:26 No provider procedures requiring assistance completed. IV discontinued, intact, cm10 bleeding controlled, No redness/swelling at site. Pressure dressing applied. Administered Medications: No medications were administered Medication: 18:52 VIS not applicable for this client. cm10 Outcome: 20:07 Discharge ordered by . ec2 20:26 Discharged to home ambulatory, with significant other, cm10 20:26 Condition: good 20:26 Discharge instructions given to patient, Instructed on discharge instructions, follow up and referral plans. Demonstrated understanding of instructions, follow-up care, 20:27 Patient left the ED. cm10 Signatures: Dispatcher [employer] EDMS Emily Gaffney RN RN ll1 Shu Lepe RN RN cm10 Ramonita Moncada mg Sagar Hassan MD MD 2
--- NOTE | 2023-04-25 20:07 | EDPHYS ---
Physician Documentation [facility] Name: More Pedroza Age: 52 yrs Sex: Female : 1970 Arrival Date: 04/25/2023 Time: 18:10 Bed 4 Private MD: ED Physician Sagar Hassan HPI: 04/25 18:39 This 52 yrs old Female presents to ER via Ambulatory with complaints of Syncope, ec2 Slurred Speech, Confussion. 18:39 Patient arrives today due to concern for episodes of transient altered mental status, ec2 confusion as well as whole body "locking up ". Patient reports for the last several months she has been having some episodes where her entire body locks up on her, she becomes rigid and feels like she cannot move or speak and feels like when she begins to speak the words are not coming out. Patient states that has whole body and not focal to one side. Patient reports no falls or injuries or trauma during this episode, denies any loss of postural tone, denies any chest pain or shortness of breath, denies any abdominal pain, denies nausea, vomiting, diarrhea. Patient reports otherwise history of hypothyroidism. Patient denies any urinary problems. Patient states that she has not seen a physician for this problem yet.. Historical: - Allergies: 18:24 PENICILLINS; ll1 - PMHx: 18:24 Hypothyroidism; ll1 - PSHx: 18:24 tubal ligation (Hypothyroidism); hysterectomy (Hypothyroidism); abdominal SX ll1 (Hypothyroidism); - Immunization history:: Adult Immunizations up to date. - Social history:: Smoking status: Patient reports the use of cigarette tobacco products, smokes one-half pack cigarettes per day. ROS: 18:39 Constitutional: as per hpi ec2 Exam: 18:39 Constitutional: GEN: NAD Head: atraumatic Eyes: EOMI Ears: External ears are ec2 normal. CV: regular rate LUNGS: no respiratory distress ABD: non-distended SKIN: no evidence of rashes MSK: no evidence of trauma NEURO: moves all extremities equally, cranial nerves II through XII intact, strength intact all 4 extremities, normal [id number], no pronator drift appreciated, sensation intact throughout. Vital Signs: 18:26 BP 157 / 105; Pulse 74; Resp 17; Temp 98.4; Pulse Ox 100% ; Weight 81.65 kg; Height 5 ll1 ft. 3 in. ; Pain 0/10; 19:30 BP 121 / 73; Pulse 66; Resp 18; Pulse Ox 99% on R/A; cm10 18:26 Body Mass Index 31.89 (81.65 kg, 160.02 cm) ll1 18:26 Pain Scale: Adult ll1 MDM: 18:28 Patient medically screened. ec2 18:39 ED course: Patient arrives today due to concern for these abnormal episodes as ec2 described in the HPI. Examination remarkable for well-appearing nontoxic dividual who has a steady gait who has a neuro intact examination otherwise. Will obtain lab work, CT scan of the head, chest x-ray, urine studies as well as a cardiac work-up. Currently considering process such as electrolyte disturbance, arrhythmia, UTI. I have a low suspicion for an intracranial process such as stroke or seizure given the patient's story and reassuring examination. Additionally low suspicion for stroke given the lack of focality on the patient's descriptors. . 19:07 ED course: EKG independently reviewed and interpreted by me, shows normal sinus rhythm, ec2 rate of 60, no acute ST segment elevations, nonconcerning intervals.. 19:38 ED course: Patient's lab work is remarkable for reassuring metabolic profile some ec2 diminished kidney function with a GFR at 71. CBC is reassuring, mag is reassuring, TSH and T4 are within normal ranges, troponin within normal ranges. Pending urine study as well as chest x-ray and CT scan of the head. . 20:05 Data reviewed: vital signs. ED course: CT scan of the head shows no acute intracranial ec2 process.. 20:06 ED course: Chest x-ray independently reviewed and interpreted by me, shows no acute ec2 thoracic process. On reassessment patient is well-appearing, ambulatory without issue, will discharge home, return precautions given. She had already called her primary care doctor and is supposed to see them tomorrow. I recommended to continue to follow-up with this appointment and possible neurology consultation. Ultimately I do not have a clear definitive diagnosis for the patient's episodes that have occurred over the past several months, clinically this does not sound like a stroke or TIA, it does not sound like seizure activity, I told her to follow-up with PCP.. 04/25 18:39 Order name: CBC with Diff; Complete Time: 19:38 ec2 04/25 18:39 Order name: CMP; Complete Time: 19:38 ec2 04/25 18:39 Order name: UAM ec2 04/25 18:39 Order name: Magnesium; Complete Time: 19:38 ec2 04/25 18:39 Order name: TSH; Complete Time: 19:38 ec2 04/25 18:39 Order name: T4 Free; Complete Time: 19:38 ec2 04/25 18:39 Order name: Troponin High Sensitivity; Complete Time: 19:38 ec2 04/25 18:39 Order name: CXR XRAY; Complete Time: 20:08 ec2 04/25 18:39 Order name: CT Head Brain wo Cont; Complete Time: 20:05 ec2 04/25 18:39 Order name: EKG; Complete Time: 18:40 ec2 04/25 18:39 Order name: EKG - Nurse/Tech; Complete Time: 19:06 ec2 Administered Medications: No medications were administered Disposition Summary: 04/25/23 20:07 Discharge Ordered Notes: Location: Home ec2 Condition: Stable ec2 Diagnosis - Abnormal Movements ec2 Forms: - Medication Reconciliation Form ec2 - Thank You Letter ec2 - Antibiotic Education ec2 - Prescription Opioid Use ec2 - Patient Portal Instructions ec2 - Leadership Thank You Letter ec2 Signatures: Dispatcher [employer] Emily Pham, RN RN ll1 Sagar Hassan MD MD ec2 Corrections: (The following items were deleted from the chart) 20:25 20:06 ED course: Chest x-ray independently reviewed and interpreted by me, shows no ec2 acute thoracic process. On reassessment patient is well-appearing, ambulatory without issue, will discharge home, return precautions given. She had already called her primary care doctor and is supposed to see them tomorrow. I recommended to continue to follow-up with this appointment and possible neurology consultation.. ec2
[2023-04-25 20:17] LABS: Specific Gravity 1.029 (1.005-1.030); Urine Bacteria <20 /HPF (<20); Urine Bilirubin NEGATIVE (Negative); Urine Blood Trace (Negative); Urine Clarity Extremely Turbid (Clear); Urine Color Yellow (Yellow); Urine Glucose NEGATIVE (Negative); Urine Mucus 2+ /HPF (None Seen); Urine Protein 1+ (Negative); Urine Urobilinogen Normal (Normal)
[2023-04-25 20:55] VITALS: TEMP 98.4
[2023-04-25 20:58] VITALS: BP 121/73; O2SAT 99
--- NOTE | 2023-04-26 09:47 | EKG ---
Test Date: 2023-04-25 Test Time: 19:00:38 Lining Vamper: OS MEASUREMENT RESULTS: Intervals: Rate: 60 KS: 140 QRSD: 74 QT: 454 QTc: 454 Marshall: P: 42 KS: 140 QRS: 27 T: 38 INTERPRETIVE STATEMENTS: Normal sinus rhythm Septal infarct, age undetermined Abnormal ECG No previous ECG available for comparison Electronically Signed On 04-26-23 09:45:23 CDT by Logan Bain
== END 2023-04-25 20:27 | disposition home or self-care (01) ==
LOC: ER 18:10
DX: G25.89 Other specified extrapyramidal and movement disorders (principal); E03.9 Hypothyroidism, unspecified; F17.210 Nicotine dependence, cigarettes, uncomplicated; Z88.0 Allergy status to penicillin
CPT/HCPCS: 36415; 70450; 71045; 80053; 81001; 83735; 84439; 84443; 84484; 85025; 93005; 99283